=== PATIENT | female | born 1950 | race African-American/Black ===

== ENCOUNTER 2018-12-28 22:04 | Inpatient (IN) ==
[2018-12-28] MEDS ORDERED: ALBUTEROL/IPRATROPIUM 3 ML NEB RESP TX STA (22:48)
[2018-12-28 23:11] LABS: Alanine Aminotransferase 32 U/L (13-56); Albumin 2.5 G/DL (3.4-5.0); Alkaline Phosphatase 77 U/L (45-117); Aspartate Amino Transferase 28 U/L (0-37); Bilirubin,Total < 0.39 MG/DL (0.2-1.0); Blood Urea Nitrogen 53 MG/DL (7-18); Calcium 7.8 MG/DL (8.5-10.1); Glucose 113 MG/DL (74-106); Total Protein 6.4 G/DL (6.4-8.3)
[2018-12-28 23:22] LABS: Red Blood Count 2.14 MC/CUMM (3.8-5.5); White Blood Count 6.5 T/CUMM (4-12)
[2018-12-28 23:23] LABS: Hematocrit 18.4 VOL% (35.7-47.0); Mean Corpuscular HGB Conc 30.4 GM/DL (32-36); Platelet Count 318 T/CUMM (130-400); Red Cell Distribution Width 17.4 % (9.3-17.3)
[2018-12-28 23:24] LABS: Basophils % 0.5 % (0.0-0.8); Eosinophils % 2.3 % (0.00-10.9); Immature Granulocytes % 0.3 %; Lymphocytes % 19.2 % (21.3-54.2); Monocytes % 4.6 % (1.7-12.7); Neutrophils % 73.1 % (38.7-73.9)
[2018-12-28 23:25] LABS: Eosinophils # 0.2 10*3/uL (0.0-0.87); Immature Granulocytes Absolute 0.02 #; Lymphocytes # 1.2 10*3/uL (1.4-4.0)
[2018-12-28 23:28] LABS: Hemoglobin 5.6 GM/DL (12.0-16.0)
[2018-12-28] MEDS ORDERED: hydrALAZINE 20 MG/1 ML VIAL IV STA (23:31)
[2018-12-28] MEDS ORDERED: SODIUM CHLORIDE 0.9% 1,000 ML IV PRN (23:34)
[2018-12-29] MEDS ORDERED: hydrALAZINE 20 MG/1 ML VIAL IV STA (00:10)
[2018-12-29] MEDS ORDERED: FUROSEMIDE 40 MG/4 ML VIAL IV STA (00:11)
[2018-12-29] MEDS ORDERED: FUROSEMIDE 100 MG/10 ML VIAL ONE (00:12)
[2018-12-29] MEDS: hydrALAZINE 20 MG/1 ML VIAL IV PRN ×2 (01:58→06:31)
[2018-12-29] MEDS ORDERED: ALBUTEROL 2.5 MG/3 ML NEB RESP TX PRN (02:14)
[2018-12-29] MEDS ORDERED: ONDANSETRON 4 MG/2 ML VIAL IV PRN (02:14)
[2018-12-29 02:43] LABS: Apearance,Urine CLEAR (Clear); Bacteria,Urine Occasional /HPF (Few); Bilirubin,Urine Negative (Negative); Blood, Urine Negative (Negative); Glucose,Urine (UA) 50 mg/dL (Negative); Hyaline Casts,Urine 1 /LPF (0-3); Ketones,Urine Negative (Negative); Nitrite,Urine Negative (Negative); Protein,Urine 100 MG/DL; RBC,Urine <1 /HPF (0-4); Squamous Epithelial Cell,Urine Occasional /HPF (0-10); Urine Color Straw (Yellow); Urine Urobilinogen < 2.0 EU/DL (0.2-1.0); WBC,Urine 1 /HPF (0-6)
[2018-12-29] MEDS: cloNIDine 0.3 MG/24 HR PATCH TRANSDERM SCH ×2 (03:22→08:50)
[2018-12-29] MEDS: PANTOPRAZOLE 40 MG VIAL IV SCH (03:27)
[2018-12-29 05:19] LABS: Calcium 8.4 MG/DL (8.5-10.1); Osmolality,Calculated 297.1 MOS/KG (273-304)
[2018-12-29] MEDS: MORPHINE 4 MG/1 ML VIAL IV PRN (07:14)
[2018-12-29] MEDS: ALBUTEROL/IPRATROPIUM 3 ML NEB RESP TX SCH ×3 (07:55→19:25)
[2018-12-29] MEDS ORDERED: FUROSEMIDE 100 MG/10 ML VIAL IV SCH (08:00)
[2018-12-29] MEDS ORDERED: INSULIN REGULAR 100 UNIT/ML IV ONE (08:00)
[2018-12-29] MEDS ORDERED: SODIUM POLYSTYRENE SULFATE 15 GM/60 ML BOTTLE PO ONE ×2 (08:00→15:00)
[2018-12-29] MEDS ORDERED: DEXTROSE 10% 25 GM/250 ML BAG IV ONE (08:00)
[2018-12-29 08:16] LABS: Basophils # 0.1 10*3/uL (0.0-0.2); Basophils % 0.6 % (0.0-0.8); Eosinophils % 0.5 % (0.00-10.9); Hematocrit 22.6 VOL% (35.7-47.0); Immature Granulocytes % 0.9 %; Immature Granulocytes Absolute 0.08 #; Lymphocytes # 1.1 10*3/uL (1.4-4.0); Lymphocytes % 13.1 % (21.3-54.2); Mean Corpuscular HGB Conc 31.9 GM/DL (32-36); Mean Corpuscular Volume 84.6 FL (87-102); Mean Platelet Volume 8.9 FL (9.6-12.0); Monocytes % 5.1 % (1.7-12.7); Neutrophils % 79.8 % (38.7-73.9); Platelet Count 279 T/CUMM (130-400); Red Cell Distribution Width 16.1 % (9.3-17.3)
[2018-12-29 08:20] LABS: Hemoglobin 7.2 GM/DL (12.0-16.0); Red Blood Count 2.67 MC/CUMM (3.8-5.5); White Blood Count 8.7 T/CUMM (4-12)
[2018-12-29] MEDS: OMEGA 3 ACID ETHYL ESTERS 1 GM CAPSULE PO SCH (08:40)
[2018-12-29] MEDS: SIMVASTATIN 20 MG TABLET PO SCH (08:41)
[2018-12-29] MEDS: methylPREDNISolone SOD SUC 40 MG/1 ML VIAL IV SCH ×3 (08:41→21:05)
[2018-12-29] MEDS: IRON (CARBONYL)/VIT C/B12/FA TABLET PO SCH (08:58)
[2018-12-29] MEDS: LETROZOLE 2.5 MG TABLET PO SCH (08:58)
[2018-12-29] MEDS: CARVEDILOL 6.25 MG TABLET PO SCH ×2 (08:58→21:05)
[2018-12-29] MEDS ORDERED: cloNIDine 0.3 MG/24 HR PATCH TRANSDERM SCH (09:00)
[2018-12-29] MEDS ORDERED: hydrALAZINE 20 MG/1 ML VIAL IV PRN (11:38)
[2018-12-29] MEDS: metOLazone 5 MG TABLET PO SCH (11:56)
[2018-12-29] MEDS: FUROSEMIDE INJ 200 MG in SODIUM CHLORIDE 0.9% 80 ML IV SCH ×2 (12:05→23:42)
[2018-12-29] MEDS ORDERED: CALCIUM GLUCONATE 2,000 MG in SODIUM CHLORIDE 0.9% 100 ML IV ONE (12:30)
[2018-12-29 13:39] LABS: Calcium 9.3 MG/DL (8.5-10.1); Osmolality,Calculated 293.5 MOS/KG (273-304)
[2018-12-30] MEDS: ALBUTEROL/IPRATROPIUM 3 ML NEB RESP TX SCH ×4 (01:05→19:15)
[2018-12-30] MEDS: FUROSEMIDE INJ 200 MG in SODIUM CHLORIDE 0.9% 80 ML IV SCH ×2 (01:06→14:45)
[2018-12-30] MEDS: methylPREDNISolone SOD SUC 40 MG/1 ML VIAL IV SCH ×4 (03:28→20:04)
[2018-12-30] MEDS: PANTOPRAZOLE 40 MG VIAL IV SCH (03:29)
[2018-12-30 05:23] LABS: Hematocrit 19.8 VOL% (35.7-47.0); Immature Granulocytes % 0.8 %; Immature Granulocytes Absolute 0.03 #; Lymphocytes # 0.4 10*3/uL (1.4-4.0); Lymphocytes % 9.3 % (21.3-54.2); Mean Corpuscular HGB Conc 32.3 GM/DL (32-36); Mean Corpuscular Volume 83.5 FL (87-102); Mean Platelet Volume 9.3 FL (9.6-12.0); Monocytes % 1.6 % (1.7-12.7); Neutrophils % 88.3 % (38.7-73.9); Platelet Count 256 T/CUMM (130-400); Red Blood Count 2.37 MC/CUMM (3.8-5.5); Red Cell Distribution Width 16.6 % (9.3-17.3); White Blood Count 3.8 T/CUMM (4-12)
[2018-12-30 05:39] LABS: Calcium 8.5 MG/DL (8.5-10.1); Osmolality,Calculated 303.8 MOS/KG (273-304)
[2018-12-30 05:50] LABS: Albumin 2.2 G/DL (3.4-5.0); Calcium 8.1 MG/DL (8.5-10.1); Osmolality,Calculated 303.8 MOS/KG (273-304)
[2018-12-30 06:13] LABS: Hemoglobin 6.4 GM/DL (12.0-16.0)
[2018-12-30] MEDS ORDERED: SODIUM CHLORIDE 0.9% 1,000 ML IV PRN ×2 (08:33→08:37)
[2018-12-30] MEDS: CARVEDILOL 6.25 MG TABLET PO SCH ×2 (09:08→21:21)
[2018-12-30] MEDS: SIMVASTATIN 20 MG TABLET PO SCH (09:08)
[2018-12-30] MEDS: LETROZOLE 2.5 MG TABLET PO SCH (09:08)
[2018-12-30] MEDS: metOLazone 5 MG TABLET PO SCH (09:08)
[2018-12-30] MEDS: OMEGA 3 ACID ETHYL ESTERS 1 GM CAPSULE PO SCH (09:09)
[2018-12-30] MEDS: IRON (CARBONYL)/VIT C/B12/FA TABLET PO SCH (09:09)
[2018-12-30] MEDS ORDERED: ceFAZolin 1,000 MG in SYRINGE 1 EACH IV ONE (11:28)
[2018-12-30] MEDS ORDERED: HEPARIN 5,000 UNIT/1 ML VIAL ONE (13:20)
[2018-12-30] MEDS ORDERED: BUPIVACAINE MPF 0.25% /EPI 30 ML VIAL ONE (13:20)
[2018-12-30] MEDS ORDERED: PROPOFOL 200 MG/20 ML VIAL IV ONE (14:47)
[2018-12-30] MEDS ORDERED: SODIUM CHLORIDE 0.9% 250 ML IV ONE (14:48)
[2018-12-30 15:59] LABS: Hepatitis B Core IgM Quant 0.21 Index; Hepatitis B Surface Ag Quant < 0.10 Index; Hepatitis B Surface Ag Result Negative (Negative); Hepatitis C Virus Ab Quant < 0.02 Index; Hepatitis C Virus Ab Result Negative (Negative)
[2018-12-30] MEDS ORDERED: HEPARIN 10,000 UNIT/10 ML VIAL IV PRN (18:05)
[2018-12-31] MEDS: ALBUTEROL/IPRATROPIUM 3 ML NEB RESP TX SCH ×4 (01:56→19:53)
[2018-12-31] MEDS: methylPREDNISolone SOD SUC 40 MG/1 ML VIAL IV SCH ×4 (02:49→22:02)
[2018-12-31] MEDS: PANTOPRAZOLE 40 MG VIAL IV SCH (02:51)
[2018-12-31 06:02] LABS: Hematocrit 24.2 VOL% (35.7-47.0); Hemoglobin 7.7 GM/DL (12.0-16.0); Immature Granulocytes % 0.5 %; Immature Granulocytes Absolute 0.03 #; Lymphocytes # 0.3 10*3/uL (1.4-4.0); Lymphocytes % 5.5 % (21.3-54.2); Mean Corpuscular HGB Conc 31.8 GM/DL (32-36); Mean Corpuscular Volume 83.2 FL (87-102); Mean Platelet Volume 9.2 FL (9.6-12.0); Monocytes % 3.4 % (1.7-12.7); Neutrophils % 90.6 % (38.7-73.9); Platelet Count 218 T/CUMM (130-400); Red Blood Count 2.91 MC/CUMM (3.8-5.5); Red Cell Distribution Width 16.1 % (9.3-17.3); White Blood Count 5.6 T/CUMM (4-12)
[2018-12-31 06:32] LABS: Albumin 2.2 G/DL (3.4-5.0); Calcium 7.7 MG/DL (8.5-10.1); Osmolality,Calculated 289.3 MOS/KG (273-304)
[2018-12-31 06:45] LABS: Band Neutrophils 4 % (0-10); Lymphocytes 4 % (20-55); Platelet Estimate Normal; Segmented Neutrophils 86 % (50-85); Total Cells Counted 100
[2018-12-31 06:46] LABS: Hypochromasia 2+
[2018-12-31 07:15] LABS: Calcium 7.4 MG/DL (8.5-10.1); Osmolality,Calculated 289.3 MOS/KG (273-304)
[2018-12-31] MEDS ORDERED: BISACODYL 5 MG TABLET PO ONE (08:30)
[2018-12-31] MEDS: POLYETHYLENE GLYCOL POWDER 17 GM PACK PO SCH (08:39)
[2018-12-31] MEDS: IRON (CARBONYL)/VIT C/B12/FA TABLET PO SCH (08:41)
[2018-12-31] MEDS: CARVEDILOL 6.25 MG TABLET PO SCH ×2 (08:41→22:01)
[2018-12-31] MEDS: SIMVASTATIN 20 MG TABLET PO SCH (08:41)
[2018-12-31] MEDS: LETROZOLE 2.5 MG TABLET PO SCH (08:41)
[2018-12-31] MEDS: metOLazone 5 MG TABLET PO SCH (08:41)
[2018-12-31] MEDS: OMEGA 3 ACID ETHYL ESTERS 1 GM CAPSULE PO SCH (09:35)
[2018-12-31] MEDS ORDERED: SODIUM CHLORIDE 0.9% 1,000 ML IV PRN (10:16)
[2018-12-31] MEDS: MORPHINE 4 MG/1 ML VIAL IV PRN (22:01)
[2019-01-01] MEDS: ALBUTEROL/IPRATROPIUM 3 ML NEB RESP TX SCH ×4 (00:27→19:15)
[2019-01-01] MEDS: methylPREDNISolone SOD SUC 40 MG/1 ML VIAL IV SCH ×4 (02:59→22:55)
[2019-01-01] MEDS: PANTOPRAZOLE 40 MG VIAL IV SCH (03:10)
[2019-01-01 06:18] LABS: Hematocrit 32.2 VOL% (35.7-47.0); Hemoglobin 10.5 GM/DL (12.0-16.0); Immature Granulocytes % 0.3 %; Immature Granulocytes Absolute 0.02 #; Lymphocytes # 0.4 10*3/uL (1.4-4.0); Lymphocytes % 5.3 % (21.3-54.2); Mean Corpuscular HGB Conc 32.6 GM/DL (32-36); Mean Corpuscular Volume 84.7 FL (87-102); Mean Platelet Volume 10.2 FL (9.6-12.0); Neutrophils % 91.4 % (38.7-73.9); Platelet Count 238 T/CUMM (130-400); Red Cell Distribution Width 16.1 % (9.3-17.3); White Blood Count 6.8 T/CUMM (4-12)
[2019-01-01 06:41] LABS: Hypochromasia 1+; Lymphocytes 5 % (20-55); Platelet Estimate Adequate; Segmented Neutrophils 91 % (50-85); Total Cells Counted 100
[2019-01-01 06:58] LABS: Albumin 2.3 G/DL (3.4-5.0); Calcium 7.8 MG/DL (8.5-10.1); Osmolality,Calculated 292.1 MOS/KG (273-304)
[2019-01-01] MEDS ORDERED: HYDROCORTISONE 2.5% RECTAL CREAM 30 GM TUBE TOP PRN (09:00)
[2019-01-01] MEDS: IRON (CARBONYL)/VIT C/B12/FA TABLET PO SCH (09:12)
[2019-01-01] MEDS: OMEGA 3 ACID ETHYL ESTERS 1 GM CAPSULE PO SCH (09:12)
[2019-01-01] MEDS: POLYETHYLENE GLYCOL POWDER 17 GM PACK PO SCH (09:12)
[2019-01-01] MEDS: metOLazone 5 MG TABLET PO SCH (09:12)
[2019-01-01] MEDS: LETROZOLE 2.5 MG TABLET PO SCH (09:12)
[2019-01-01] MEDS: CARVEDILOL 6.25 MG TABLET PO SCH ×2 (09:12→22:59)
[2019-01-01] MEDS ORDERED: PROPOFOL 200 MG/20 ML VIAL IV ONE (10:00)
[2019-01-01] MEDS ORDERED: LIDOCAINE 100 MG/5 ML SYRINGE ONE (10:00)
[2019-01-01] MEDS: SODIUM CHLORIDE 0.9% 500 ML IV SCH (13:33)
[2019-01-01] MEDS: SIMVASTATIN 20 MG TABLET PO SCH (20:25)
[2019-01-02] MEDS: ALBUTEROL/IPRATROPIUM 3 ML NEB RESP TX SCH ×4 (00:15→19:07)
[2019-01-02] MEDS: PANTOPRAZOLE 40 MG VIAL IV SCH (03:30)
[2019-01-02] MEDS: ACETAMINOPHEN 325 MG TABLET PO PRN ×2 (06:19→16:03)
[2019-01-02] MEDS: methylPREDNISolone SOD SUC 40 MG/1 ML VIAL IV SCH ×3 (06:20→23:51)
[2019-01-02 06:39] LABS: Hematocrit 33.9 VOL% (35.7-47.0); Hemoglobin 10.9 GM/DL (12.0-16.0); Immature Granulocytes % 0.4 %; Immature Granulocytes Absolute 0.03 #; Lymphocytes # 0.4 10*3/uL (1.4-4.0); Lymphocytes % 5.5 % (21.3-54.2); Mean Corpuscular HGB Conc 32.2 GM/DL (32-36); Mean Platelet Volume 10.1 FL (9.6-12.0); Monocytes % 3.8 % (1.7-12.7); Neutrophils % 90.3 % (38.7-73.9); Platelet Count 235 T/CUMM (130-400); Red Blood Count 3.94 MC/CUMM (3.8-5.5); White Blood Count 7.3 T/CUMM (4-12)
[2019-01-02 06:48] LABS: Albumin 2.2 G/DL (3.4-5.0); Calcium 7.7 MG/DL (8.5-10.1); Osmolality,Calculated 297.3 MOS/KG (273-304)
[2019-01-02] MEDS: SODIUM CHLORIDE 0.9% 500 ML IV SCH (07:20)
[2019-01-02] MEDS: OMEGA 3 ACID ETHYL ESTERS 1 GM CAPSULE PO SCH (08:35)
[2019-01-02] MEDS: POLYETHYLENE GLYCOL POWDER 17 GM PACK PO SCH (08:35)
[2019-01-02] MEDS: CALCIUM ACETATE 667 MG CAPSULE PO SCH ×3 (08:35→16:03)
[2019-01-02] MEDS: LETROZOLE 2.5 MG TABLET PO SCH (08:35)
[2019-01-02] MEDS: CARVEDILOL 6.25 MG TABLET PO SCH ×2 (08:35→21:57)
[2019-01-02] MEDS: IRON (CARBONYL)/VIT C/B12/FA TABLET PO SCH (08:35)
[2019-01-02] MEDS: SIMVASTATIN 20 MG TABLET PO SCH (21:56)
[2019-01-03] MEDS: ALBUTEROL/IPRATROPIUM 3 ML NEB RESP TX SCH ×4 (00:46→20:30)
[2019-01-03] MEDS: PANTOPRAZOLE 40 MG VIAL IV SCH (04:15)
[2019-01-03 05:27] LABS: Basophils % 0.1 % (0.0-0.8); Hematocrit 35.4 VOL% (35.7-47.0); Immature Granulocytes % 0.6 %; Immature Granulocytes Absolute 0.05 #; Lymphocytes # 0.5 10*3/uL (1.4-4.0); Lymphocytes % 5.6 % (21.3-54.2); Mean Corpuscular HGB Conc 31.1 GM/DL (32-36); Mean Platelet Volume 10.1 FL (9.6-12.0); Monocytes % 3.7 % (1.7-12.7); Platelet Count 235 T/CUMM (130-400); Red Blood Count 4.07 MC/CUMM (3.8-5.5); Red Cell Distribution Width 15.6 % (9.3-17.3); White Blood Count 8.5 T/CUMM (4-12)
[2019-01-03] MEDS: SODIUM CHLORIDE 0.9% 500 ML IV SCH (07:43)
[2019-01-03] MEDS: CARVEDILOL 6.25 MG TABLET PO SCH ×2 (09:04→21:09)
[2019-01-03] MEDS: OMEGA 3 ACID ETHYL ESTERS 1 GM CAPSULE PO SCH (09:04)
[2019-01-03] MEDS: IRON (CARBONYL)/VIT C/B12/FA TABLET PO SCH (09:05)
[2019-01-03] MEDS: CALCIUM ACETATE 667 MG CAPSULE PO SCH ×3 (09:05→17:01)
[2019-01-03] MEDS: LETROZOLE 2.5 MG TABLET PO SCH (09:05)
[2019-01-03] MEDS: POLYETHYLENE GLYCOL POWDER 17 GM PACK PO SCH (09:05)
[2019-01-03] MEDS ORDERED: BISACODYL 5 MG TABLET PO ONE (12:00)
[2019-01-03] MEDS: methylPREDNISolone SOD SUC 40 MG/1 ML VIAL IV SCH (13:35)
[2019-01-03] MEDS ORDERED: POLYETHYLENE GLYCOL POWDER 255 GM BOTTLE PO ONE (15:47)
[2019-01-03] MEDS: SIMVASTATIN 20 MG TABLET PO SCH (21:09)
[2019-01-04] MEDS: ALBUTEROL/IPRATROPIUM 3 ML NEB RESP TX SCH ×4 (01:55→19:44)
[2019-01-04] MEDS: PANTOPRAZOLE 40 MG VIAL IV SCH (02:41)
[2019-01-04 06:08] LABS: Calcium 7.8 MG/DL (8.5-10.1); Osmolality,Calculated 283.8 MOS/KG (273-304)
[2019-01-04] MEDS: CALCIUM ACETATE 667 MG CAPSULE PO SCH ×3 (08:24→16:37)
[2019-01-04] MEDS ORDERED: POLYETHYLENE GLYCOL POWDER 255 GM BOTTLE PO ONE (08:42)
[2019-01-04] MEDS: POLYETHYLENE GLYCOL POWDER 17 GM PACK PO SCH (08:49)
[2019-01-04] MEDS ORDERED: methylPREDNISolone SOD SUC 40 MG/1 ML VIAL IV SCH (09:00)
[2019-01-04] MEDS: SODIUM CHLORIDE 0.9% 500 ML IV SCH (09:01)
[2019-01-04] MEDS: LETROZOLE 2.5 MG TABLET PO SCH (09:02)
[2019-01-04] MEDS: CARVEDILOL 6.25 MG TABLET PO SCH ×2 (09:02→21:10)
[2019-01-04] MEDS: IRON (CARBONYL)/VIT C/B12/FA TABLET PO SCH (09:02)
[2019-01-04] MEDS: OMEGA 3 ACID ETHYL ESTERS 1 GM CAPSULE PO SCH (09:03)
[2019-01-04] MEDS: SIMVASTATIN 20 MG TABLET PO SCH (21:10)
[2019-01-05] MEDS: ALBUTEROL/IPRATROPIUM 3 ML NEB RESP TX SCH ×4 (00:19→19:11)
[2019-01-05] MEDS: PANTOPRAZOLE 40 MG VIAL IV SCH ×2 (03:27→16:00)
[2019-01-05 04:54] LABS: INR 1.1; PT Patient Result 11.5 SECS
[2019-01-05] MEDS ORDERED: LIDOCAINE 1% 5 ML VIAL ONE (09:00)
[2019-01-05] MEDS ORDERED: PROPOFOL 200 MG/20 ML VIAL IV ONE (09:00)
[2019-01-05] MEDS: CALCIUM ACETATE 667 MG CAPSULE PO SCH ×3 (09:00→16:02)
[2019-01-05] MEDS: LETROZOLE 2.5 MG TABLET PO SCH ×2 (11:30→16:03)
[2019-01-05] MEDS: predniSONE 20 MG TABLET PO SCH ×2 (11:30→16:02)
[2019-01-05] MEDS: POLYETHYLENE GLYCOL POWDER 17 GM PACK PO SCH ×2 (11:30→16:03)
[2019-01-05] MEDS: IRON (CARBONYL)/VIT C/B12/FA TABLET PO SCH (11:30)
[2019-01-05] MEDS: OMEGA 3 ACID ETHYL ESTERS 1 GM CAPSULE PO SCH ×2 (11:30→16:02)
[2019-01-05] MEDS: CARVEDILOL 6.25 MG TABLET PO SCH ×2 (11:30→16:03)
[2019-01-05] MEDS: PANTOPRAZOLE 40 MG TABLET PO SCH ×2 (11:31→16:03)
[2019-01-05] MEDS: SODIUM CHLORIDE 0.9% 500 ML IV SCH (12:00)
[2019-01-05] MEDS: cloNIDine 0.3 MG/24 HR PATCH TRANSDERM SCH (16:01)
[2019-01-05] MEDS: SIMVASTATIN 20 MG TABLET PO SCH (21:20)
[2019-01-05] MEDS: CARVEDILOL 3.125 MG TABLET PO SCH (21:20)
[2019-01-06] MEDS: ALBUTEROL/IPRATROPIUM 3 ML NEB RESP TX SCH ×4 (00:42→19:30)
[2019-01-06 07:06] LABS: Calcium 7.8 MG/DL (8.5-10.1); Osmolality,Calculated 277.1 MOS/KG (273-304)
[2019-01-06] MEDS: SODIUM CHLORIDE 0.9% 500 ML IV SCH (09:35)
[2019-01-06] MEDS: LETROZOLE 2.5 MG TABLET PO SCH (09:36)
[2019-01-06] MEDS: PANTOPRAZOLE 40 MG TABLET PO SCH (09:36)
[2019-01-06] MEDS: predniSONE 20 MG TABLET PO SCH (09:36)
[2019-01-06] MEDS: CARVEDILOL 3.125 MG TABLET PO SCH ×2 (09:36→21:10)
[2019-01-06] MEDS: IRON (CARBONYL)/VIT C/B12/FA TABLET PO SCH (09:36)
[2019-01-06] MEDS: POLYETHYLENE GLYCOL POWDER 17 GM PACK PO SCH (09:39)
[2019-01-06] MEDS: OMEGA 3 ACID ETHYL ESTERS 1 GM CAPSULE PO SCH (09:41)
[2019-01-06] MEDS: SIMVASTATIN 20 MG TABLET PO SCH (21:10)
[2019-01-07] MEDS: ALBUTEROL/IPRATROPIUM 3 ML NEB RESP TX SCH ×3 (00:51→13:33)
[2019-01-07] MEDS: ACETAMINOPHEN 325 MG TABLET PO PRN (04:41)
[2019-01-07 06:28] LABS: Calcium 7.6 MG/DL (8.5-10.1)
[2019-01-07] MEDS: SODIUM CHLORIDE 0.9% 500 ML IV SCH (08:49)
[2019-01-07] MEDS: CARVEDILOL 3.125 MG TABLET PO SCH (10:47)
[2019-01-07] MEDS: IRON (CARBONYL)/VIT C/B12/FA TABLET PO SCH (10:47)
[2019-01-07] MEDS: OMEGA 3 ACID ETHYL ESTERS 1 GM CAPSULE PO SCH (10:47)
[2019-01-07] MEDS: predniSONE 20 MG TABLET PO SCH (10:47)
[2019-01-07] MEDS: LETROZOLE 2.5 MG TABLET PO SCH (10:47)
[2019-01-07] MEDS: POLYETHYLENE GLYCOL POWDER 17 GM PACK PO SCH (10:48)
[2019-01-07] MEDS: PANTOPRAZOLE 40 MG TABLET PO SCH (10:48)
[2019-01-07 12:20] VITALS: BP 128/71
== END 2019-01-07 17:33 | disposition home or self-care (01) | DRG 673 ==
LOC: N.ED 22:04 → SUATTDRO 12-29 00:09 → N.EDINP 12-29 00:09 → N.ICU 12-29 00:33 → N.5E 12-31 19:20
PROVIDERS: ADMIT Internal Medicine; ATTEND Family Medicine

== ENCOUNTER 2019-03-13 10:15 | Inpatient (IN) ==
[2019-03-13] MEDS ORDERED: HEPARIN 10,000 UNIT/10 ML VIAL IV SCH (10:30)
[2019-03-13 11:00] LABS: Basophils % 0.8 % (0.0-0.8); Eosinophils # 0.2 10*3/uL (0.0-0.87); Eosinophils % 4.2 % (0.00-10.9); Hematocrit 23.6 VOL% (35.7-47.0); Hemoglobin 7.5 GM/DL (12.0-16.0); Immature Granulocytes % 0.3 %; Immature Granulocytes Absolute 0.01 #; Lymphocytes # 0.8 10*3/uL (1.4-4.0); Lymphocytes % 20.1 % (21.3-54.2); Mean Corpuscular HGB Conc 31.8 GM/DL (32-36); Mean Corpuscular Volume 94.8 FL (87-102); Monocytes % 7.3 % (1.7-12.7); Neutrophils % 67.3 % (38.7-73.9); Platelet Count 249 T/CUMM (130-400); Red Blood Count 2.49 MC/CUMM (3.8-5.5); Red Cell Distribution Width 15.2 % (9.3-17.3); White Blood Count 3.8 T/CUMM (4-12)
[2019-03-13 11:25] LABS: Alanine Aminotransferase 31 U/L (13-56); Albumin 2.7 G/DL (3.4-5.0); Alkaline Phosphatase 95 U/L (45-117); Aspartate Amino Transferase 23 U/L (0-37); Bilirubin,Total < 0.39 MG/DL (0.2-1.0); Blood Urea Nitrogen 27 MG/DL (7-18); Calcium 8.2 MG/DL (8.5-10.1); Estimated Glom Filtration Rate 18 ML/MIN; Glucose 86 MG/DL (74-106); Osmolality,Calculated 282.4 MOS/KG (273-304); Total Protein 6.4 G/DL (6.4-8.3)
[2019-03-13] MEDS: SODIUM CHLORIDE 0.9% 1,000 ML IV SCH (12:13)
[2019-03-13] MEDS: carvediloL 6.25 MG TABLET PO SCH (16:55)
[2019-03-14] MEDS ORDERED: SODIUM CHLORIDE 0.9% 1,000 ML IV PRN (11:04)
[2019-03-14] MEDS: IRON (CARBONYL)/VIT C/B12/FA TABLET PO SCH (12:46)
[2019-03-14] MEDS: LETROZOLE 2.5 MG TABLET PO SCH (12:46)
[2019-03-14] MEDS: carvediloL 6.25 MG TABLET PO SCH ×2 (12:47→16:03)
[2019-03-14] MEDS: CHLORHEXIDINE 0.12% ORAL RINSE 60 ML BOTTLE SWISH/SPIT SCH ×2 (12:49→21:47)
[2019-03-14] MEDS: SODIUM CHLORIDE 0.9% 1,000 ML IV SCH (12:50)
[2019-03-14] MEDS: CHLORHEXIDINE 4% SOLN 118 ML BOTTLE TOP SCH ×3 (12:58→21:19)
[2019-03-15] MEDS ORDERED: VANCOMYCIN 1,000 MG VIAL ONE (04:21)
[2019-03-15] MEDS ORDERED: TISSUE ADHESIVE 1 EACH APPLICATOR TOP ONE (04:21)
[2019-03-15] MEDS ORDERED: PAPAVERINE 60 MG/2 ML VIAL ONE (04:21)
[2019-03-15] MEDS: CHLORHEXIDINE 4% SOLN 118 ML BOTTLE TOP SCH ×2 (04:45→08:37)
[2019-03-15] MEDS ORDERED: PHENYLEPHRINE DRIP 20 MG/250 ML PREMIX IV ONE (05:41)
[2019-03-15] MEDS ORDERED: CALCIUM CHLORIDE 1,000 MG/10 ML VIAL IV ONE (05:41)
[2019-03-15] MEDS ORDERED: HEPARIN/NACL 0.9% 2 UNITS/ML 500 ML IV ONE (05:41)
[2019-03-15] MEDS ORDERED: AMINOCAPROIC ACID 5,000 MG/20 ML VIAL ONE (05:42)
[2019-03-15] MEDS ORDERED: VECURONIUM 10 MG VIAL IV ONE (05:42)
[2019-03-15] MEDS ORDERED: MIDAZOLAM 10 MG/2 ML VIAL ONE (05:42)
[2019-03-15] MEDS ORDERED: ETOMIDATE 40 MG/20 ML VIAL IV ONE (05:42)
[2019-03-15] MEDS ORDERED: ePHEDrine 50 MG/ML AMP ONE (05:42)
[2019-03-15] MEDS ORDERED: NITROGLYCERIN DRIP 50 MG/250 ML BOTTLE IV ONE (05:42)
[2019-03-15] MEDS ORDERED: LACTATED RINGERS 1,000 ML IV ONE (05:43)
[2019-03-15] MEDS ORDERED: SODIUM CHLORIDE 0.9% 250 ML IV ONE (05:43)
[2019-03-15] MEDS ORDERED: SODIUM CHLORIDE 0.9% 1,000 ML IV ONE (05:43)
[2019-03-15] MEDS: carvediloL 6.25 MG TABLET PO SCH ×2 (06:01→08:37)
[2019-03-15] MEDS ORDERED: CEFUROXIME INJ 1,500 MG in SODIUM CHLORIDE 0.9% 100 ML IV ONE (06:30)
[2019-03-15 08:06] LABS: ABG Base Excess -1.2 MMOL/L (-2.5-2.5); ABG HCO3 23.4 MMOL/L (20-26); ABG PCO2 38.9 MM HG (35-48); ABG TCO2 21.3 MMOL/L (23-27); Glucose Heart Surgery 102 MG/DL (74-106); Hematocrit Heart Surgery 31.9 PERCENT (37-47); Hemoglobin Heart Surgery 10.3 G/DL (12.0-16.0); Ionized Calcium Arterial 1.45 MMOL/L (1.21-1.46); PCO2 Patient Temp Arterial 38.9 MMHG; Patient Temperature 37 CELCIUS; Sodium Heart/CVR 134 MMOL/L (135-145)
[2019-03-15 08:11] LABS: Amorphous Crystals,Urine Few /HPF (Few); Apearance,Urine CLEAR (Clear); Bilirubin,Urine Negative (Negative); Blood, Urine Negative (Negative); Glucose,Urine (UA) Negative (Negative); Ketones,Urine Negative (Negative); Mucus,Urine Occasional /LPF (Occasional); Nitrite,Urine Negative (Negative); Protein,Urine >=500 MG/DL; Squamous Epithelial Cell,Urine Occasional /HPF (0-10); Urine Color Straw (Yellow); Urine Specific Gravity 1.005 (1.001-1.035); Urine Urobilinogen < 2.0 EU/DL (0.2-1.0); WBC,Urine <1 /HPF (0-6)
[2019-03-15] MEDS: IRON (CARBONYL)/VIT C/B12/FA TABLET PO SCH (08:37)
[2019-03-15] MEDS: LETROZOLE 2.5 MG TABLET PO SCH (08:37)
[2019-03-15] MEDS ORDERED: VANCOMYCIN 500 MG VIAL ONE (08:42)
[2019-03-15 09:11] LABS: Hematocrit Heart Surgery 20.6 PERCENT (37-47); Hemoglobin Heart Surgery 6.6 G/DL (12.0-16.0); PCO2 Patient Temp Venous 37.4 MM HG; PH Patient Temp Venous 7.405; Potassium Heart/CVR 5.2 MMOL/L (3.5-5.1); VBG HCO3 23.4 MEQ/L (24-28); VBG Oxygen Saturation 79.7 %; VBG PCO2 39.3 MMHG (41-51); VBG PH 7.39; VBG PO2 42.8 MMHG (17-40)
[2019-03-15 09:45] LABS: Hemoglobin Heart Surgery 6.8 G/DL (12.0-16.0); PCO2 Patient Temp Venous 31.5 MM HG; PH Patient Temp Venous 7.399; PO2 Patient Temp Venous 49.6 MM HG; Potassium Heart/CVR 4.2 MMOL/L (3.5-5.1); VBG Base Excess -5.3 MEQ/L (0-4); VBG HCO3 19.2 MEQ/L (24-28); VBG Oxygen Saturation 85.6 %; VBG PCO2 32.9 MMHG (41-51); VBG PH 7.384; VBG PO2 53.2 MMHG (17-40)
[2019-03-15] MEDS ORDERED: diphenhydrAMINE 50 MG/1 ML VIAL ONE (10:00)
[2019-03-15] MEDS ORDERED: FAMOTIDINE 20 MG/2 ML VIAL IV ONE (10:01)
[2019-03-15 10:14] LABS: Hematocrit Heart Surgery 25.9 PERCENT (37-47); Hemoglobin Heart Surgery 8.3 G/DL (12.0-16.0); PCO2 Patient Temp Venous 37.9 MM HG; PH Patient Temp Venous 7.366; PO2 Patient Temp Venous 34.1 MM HG; Potassium Heart/CVR 4.7 MMOL/L (3.5-5.1); VBG Base Excess -3.2 MEQ/L (0-4); VBG HCO3 21.4 MEQ/L (24-28); VBG Oxygen Saturation 72.1 %; VBG PCO2 39.8 MMHG (41-51); VBG PH 7.351; VBG PO2 36.6 MMHG (17-40)
[2019-03-15] MEDS ORDERED: THROMBIN TOPICAL (RECOMBINANT) 5,000 UNIT VIAL TOP ONE (10:28)
[2019-03-15] MEDS ORDERED: MANNITOL 100 GM/500 ML BAG IV ONE (10:37)
[2019-03-15] MEDS ORDERED: PROTAMINE SULFATE 250 MG/25 ML VIAL IV ONE (10:37)
[2019-03-15] MEDS ORDERED: MAGNESIUM SULFATE 5 GM/10 ML VIAL IV ONE (10:37)
[2019-03-15] MEDS ORDERED: SODIUM BICARBONATE 50 MEQ/50 ML VIAL IV ONE (10:37)
[2019-03-15] MEDS ORDERED: ALBUMIN 25% 25 GM/100 ML VIAL IV ONE (10:37)
[2019-03-15] MEDS ORDERED: DEXTROSE 5% KCL 20 MEQ 20 MEQ/1,000 ML BAG IV ONE (10:37)
[2019-03-15] MEDS ORDERED: LIDOCAINE 2% 5 ML VIAL ONE (10:37)
[2019-03-15] MEDS ORDERED: FUROSEMIDE 20 MG/2 ML VIAL ONE (10:38)
[2019-03-15] MEDS ORDERED: methylPREDNISolone SOD SUC 1,000 MG/8 ML VIAL ONE (10:38)
[2019-03-15] MEDS ORDERED: PROTAMINE SULFATE 50 MG/5 ML VIAL IV ONE (10:38)
[2019-03-15] MEDS ORDERED: HEPARIN 10,000 UNIT/10 ML VIAL ONE (10:38)
[2019-03-15 10:45] LABS: ABG Base Excess -5.8 MMOL/L (-2.5-2.5); ABG HCO3 19.7 MMOL/L (20-26); ABG PH 7.332 (7.35-7.45); ABG TCO2 18.3 MMOL/L (23-27); Glucose Heart Surgery 169 MG/DL (74-106); Hematocrit Heart Surgery 26.3 PERCENT (37-47); Hemoglobin Heart Surgery 8.5 G/DL (12.0-16.0); PH Patient Temp Arterial 7.332; Patient Temperature 37 CELCIUS; Potassium Heart/CVR 4.3 MMOL/L (3.5-5.1); Sodium Heart/CVR 134 MMOL/L (135-145)
[2019-03-15] MEDS ORDERED: MORPHINE 10 MG/1 ML VIAL IV PRN (11:39)
[2019-03-15] MEDS ORDERED: MAGNESIUM SULF RIDER 2 GM in PREMIX 1 EACH IV PRN (11:39)
[2019-03-15] MEDS ORDERED: MAGNESIUM SULF RIDER 4 GM in PREMIX 1 EACH IV PRN (11:39)
[2019-03-15] MEDS ORDERED: MIDAZOLAM 2 MG/2 ML VIAL IV PRN (11:39)
[2019-03-15] MEDS ORDERED: INSULIN REGULAR 100 UNIT/ML IV PRN (11:39)
[2019-03-15] MEDS ORDERED: ACETAMINOPHEN 650 MG SUPP RECTAL PRN (11:39)
[2019-03-15] MEDS ORDERED: SODIUM CHLORIDE 0.9% 250 ML IV PRN (11:39)
[2019-03-15] MEDS ORDERED: CHLORHEXIDINE 4% SOLN 118 ML BOTTLE TOP PRN (11:39)
[2019-03-15] MEDS ORDERED: ONDANSETRON 4 MG/2 ML VIAL IV PRN (11:39)
[2019-03-15] MEDS ORDERED: POTASSIUM CHLORIDE RIDER 10 MEQ in PREMIX 1 EACH IV PRN (11:39)
[2019-03-15] MEDS ORDERED: CALCIUM CHLORIDE 1,000 MG/10 ML SYRINGE IV PRN (11:39)
[2019-03-15] MEDS ORDERED: DEXTROSE 50% 25 GM/50 ML VIAL IV PRN ×2 (11:39)
[2019-03-15] MEDS ORDERED: POTASSIUM CHLORIDE RIDER 20 MEQ in PREMIX 1 EACH IV PRN (11:39)
[2019-03-15] MEDS ORDERED: ALBUMIN 5% 12.5 GM in PREMIX 1 EACH IV PRN (11:39)
[2019-03-15] MEDS ORDERED: SODIUM CHLORIDE 0.45% 1,000 ML IV SCH ×2 (12:00)
[2019-03-15] MEDS ORDERED: NITROPRUSSIDE 50 MG/2 ML VIAL ONE (12:11)
[2019-03-15] MEDS ORDERED: NITROPRUSSIDE 100 MG in DEXTROSE 5% 246 ML IV PRN (12:30)
[2019-03-15] MEDS ORDERED: METOPROLOL TARTRATE 5 MG/5 ML VIAL IV ONE (12:38)
[2019-03-15 12:41] LABS: VBG Base Excess -4.6 MEQ/L (0-4); VBG HCO3 20.2 MEQ/L (24-28); VBG PH 7.233; VBG PO2 44.5 MMHG (17-40)
[2019-03-15 12:50] LABS: INR 1.1; PT Patient Result 11.7 SECS (9.6-12.2); Partial Thromboplastin Time 24.7 SECS (20.8-36.0)
[2019-03-15 12:55] LABS: Basophils % 0.2 % (0.0-0.8); Eosinophils # 0.1 10*3/uL (0.0-0.87); Eosinophils % 0.5 % (0.00-10.9); Hematocrit 22.6 VOL% (35.7-47.0); Hemoglobin 7.3 GM/DL (12.0-16.0); Immature Granulocytes % 0.5 %; Immature Granulocytes Absolute 0.05 #; Lymphocytes # 1.4 10*3/uL (1.4-4.0); Lymphocytes % 13.1 % (21.3-54.2); Mean Corpuscular HGB Conc 32.3 GM/DL (32-36); Monocytes % 3.5 % (1.7-12.7); Neutrophils % 82.2 % (38.7-73.9); Platelet Count 235 T/CUMM (130-400); Red Blood Count 2.43 MC/CUMM (3.8-5.5); Red Cell Distribution Width 14.7 % (9.3-17.3); White Blood Count 10.9 T/CUMM (4-12)
[2019-03-15 13:08] LABS: Platelet Estimate Normal
[2019-03-15 13:09] LABS: Anisocytosis 1+; Basophilic Stippling Slight; Blood Urea Nitrogen 23 MG/DL (7-18); Calcium 9.3 MG/DL (8.5-10.1); Estimated Glom Filtration Rate 17 ML/MIN; Glucose 179 MG/DL (74-106); Osmolality,Calculated 286.4 MOS/KG (273-304)
[2019-03-15 13:10] LABS: Macrocytosis Slight
[2019-03-15] MEDS: CHLORHEXIDINE 0.12% ORAL RINSE 60 ML BOTTLE SWISH/SPIT SCH ×2 (14:30→20:57)
[2019-03-15] MEDS: SODIUM CHLORIDE 0.9% 1,000 ML IV SCH (14:30)
[2019-03-15] MEDS ORDERED: INSULIN REGULAR DRIP 100 ML IV PRN (14:42)
[2019-03-15 17:49] LABS: ABG Base Excess -5.8 MMOL/L (-2.5-2.5); ABG HCO3 19.6 MMOL/L (20-26); ABG Oxygen Saturation 98.8 % (95-100); ABG PCO2 42.1 MM HG (35-48); ABG PH 7.293 (7.35-7.45); ABG TCO2 19.4 MMOL/L (23-27); Glucose Heart Surgery 213 MG/DL (74-106); Hemoglobin Heart Surgery 7.4 G/DL (12.0-16.0); Potassium Heart/CVR 4.7 MMOL/L (3.5-5.1)
[2019-03-15] MEDS ORDERED: LACTATED RINGERS 250 ML IV ONE (18:08)
[2019-03-15] MEDS: CEFUROXIME INJ 1,500 MG in SYRINGE 1 EACH IV SCH (19:58)
[2019-03-15] MEDS: MORPHINE 4 MG/1 ML VIAL IV PRN (22:20)
[2019-03-16 04:45] LABS: Basophils % 0.1 % (0.0-0.8); Hematocrit 21.2 VOL% (35.7-47.0); Hemoglobin 6.7 GM/DL (12.0-16.0); Immature Granulocytes % 0.5 %; Immature Granulocytes Absolute 0.04 #; Lymphocytes # 0.6 10*3/uL (1.4-4.0); Lymphocytes % 7.2 % (21.3-54.2); Mean Corpuscular HGB Conc 31.6 GM/DL (32-36); Mean Corpuscular Volume 95.9 FL (87-102); Mean Platelet Volume 9.9 FL (9.6-12.0); Monocytes % 7.1 % (1.7-12.7); Neutrophils % 85.1 % (38.7-73.9); Platelet Count 176 T/CUMM (130-400); Red Blood Count 2.21 MC/CUMM (3.8-5.5); Red Cell Distribution Width 15.6 % (9.3-17.3); White Blood Count 7.6 T/CUMM (4-12)
[2019-03-16 05:05] LABS: Calcium 9.4 MG/DL (8.5-10.1)
[2019-03-16 05:09] LABS: ABG Base Excess -6.7 MMOL/L (-2.5-2.5); ABG Oxygen Saturation 97.6 % (95-100); ABG PCO2 38.7 MM HG (35-48); ABG PH 7.309 (7.35-7.45); ABG PO2 119.2 MM HG (80-95); ABG TCO2 20.2 MMOL/L (23-27); Glucose Heart Surgery 105 MG/DL (74-106); Hemoglobin Heart Surgery 7.4 G/DL (12.0-16.0); Potassium Heart/CVR 5.1 MMOL/L (3.5-5.1)
[2019-03-16] MEDS: CEFUROXIME INJ 1,500 MG in SYRINGE 1 EACH IV SCH ×2 (08:41→20:00)
[2019-03-16] MEDS: CHLORHEXIDINE 0.12% ORAL RINSE 60 ML BOTTLE SWISH/SPIT SCH ×2 (08:42→20:31)
[2019-03-16] MEDS: PANTOPRAZOLE 40 MG VIAL IV SCH (08:42)
[2019-03-16] MEDS ORDERED: ENOXAPARIN 30 MG/0.3 ML SYRINGE SUBCUT SCH (09:00)
[2019-03-16] MEDS: MORPHINE 4 MG/1 ML VIAL IV PRN ×2 (09:33→20:31)
[2019-03-16] MEDS: ASPIRIN EC 325 MG TABLET PO SCH (11:11)
[2019-03-16] MEDS: METOPROLOL TARTRATE 25 MG TABLET PO SCH ×2 (11:11→20:31)
[2019-03-16] MEDS ORDERED: FUROSEMIDE 40 MG TABLET PO SCH (11:39)
[2019-03-16] MEDS ORDERED: ATORVASTATIN 40 MG TABLET PO SCH (11:39)
[2019-03-16] MEDS: hydrALAZINE 25 MG TABLET PO SCH (20:31)
[2019-03-16] MEDS: ATORVASTATIN 40 MG TABLET PO SCH (20:31)
[2019-03-17 05:12] LABS: Basophils % 0.1 % (0.0-0.8); Hematocrit 29.3 VOL% (35.7-47.0); Hemoglobin 9.7 GM/DL (12.0-16.0); Immature Granulocytes % 0.6 %; Immature Granulocytes Absolute 0.05 #; Lymphocytes # 0.8 10*3/uL (1.4-4.0); Lymphocytes % 9.2 % (21.3-54.2); Mean Corpuscular HGB Conc 33.1 GM/DL (32-36); Mean Corpuscular Volume 89.3 FL (87-102); Neutrophils % 82.1 % (38.7-73.9); Platelet Count 140 T/CUMM (130-400); Red Blood Count 3.28 MC/CUMM (3.8-5.5); Red Cell Distribution Width 15.9 % (9.3-17.3); White Blood Count 8.3 T/CUMM (4-12)
[2019-03-17 05:27] LABS: Calcium 8.6 MG/DL (8.5-10.1); Osmolality,Calculated 278.7 MOS/KG (273-304)
[2019-03-17] MEDS: CHLORHEXIDINE 0.12% ORAL RINSE 60 ML BOTTLE SWISH/SPIT SCH ×2 (08:14→22:00)
[2019-03-17] MEDS: hydrALAZINE 25 MG TABLET PO SCH ×2 (08:14→22:00)
[2019-03-17] MEDS: PANTOPRAZOLE 40 MG VIAL IV SCH (08:14)
[2019-03-17] MEDS: ASPIRIN EC 325 MG TABLET PO SCH (08:14)
[2019-03-17] MEDS: METOPROLOL TARTRATE 25 MG TABLET PO SCH ×2 (08:14→22:00)
[2019-03-17] MEDS ORDERED: LACTATED RINGERS 250 ML IV ONE (09:57)
[2019-03-17] MEDS: ATORVASTATIN 40 MG TABLET PO SCH (22:00)
[2019-03-18 05:11] LABS: Calcium 8.5 MG/DL (8.5-10.1); Osmolality,Calculated 282.1 MOS/KG (273-304)
[2019-03-18 05:18] LABS: Basophils % 0.1 % (0.0-0.8); Eosinophils # 0.1 10*3/uL (0.0-0.87); Eosinophils % 0.6 % (0.00-10.9); Hematocrit 27.5 VOL% (35.7-47.0); Hemoglobin 9.1 GM/DL (12.0-16.0); Immature Granulocytes % 0.6 %; Immature Granulocytes Absolute 0.05 #; Lymphocytes # 0.7 10*3/uL (1.4-4.0); Lymphocytes % 8.1 % (21.3-54.2); Mean Corpuscular HGB Conc 33.1 GM/DL (32-36); Mean Corpuscular Volume 91.7 FL (87-102); Mean Platelet Volume 10.3 FL (9.6-12.0); Monocytes % 8.9 % (1.7-12.7); Neutrophils % 81.7 % (38.7-73.9); Platelet Count 126 T/CUMM (130-400); Red Cell Distribution Width 15.2 % (9.3-17.3); White Blood Count 8.3 T/CUMM (4-12)
[2019-03-18] MEDS: CHLORHEXIDINE 0.12% ORAL RINSE 60 ML BOTTLE SWISH/SPIT SCH ×2 (08:00→20:44)
[2019-03-18] MEDS: MORPHINE 4 MG/1 ML VIAL IV PRN (08:28)
[2019-03-18] MEDS ORDERED: ASPIRIN EC 81 MG TABLET PO SCH (09:00)
[2019-03-18] MEDS ORDERED: HEPARIN 10,000 UNIT/10 ML VIAL IV SCH (12:30)
[2019-03-18] MEDS: hydrALAZINE 25 MG TABLET PO SCH ×2 (14:10→20:44)
[2019-03-18] MEDS: METOPROLOL TARTRATE 25 MG TABLET PO SCH ×2 (14:10→20:46)
[2019-03-18] MEDS: ASPIRIN EC 325 MG TABLET PO SCH (14:10)
[2019-03-18] MEDS: PANTOPRAZOLE 40 MG VIAL IV SCH (14:20)
[2019-03-18] MEDS: ATORVASTATIN 40 MG TABLET PO SCH (20:43)
[2019-03-19] MEDS: PANTOPRAZOLE 40 MG VIAL IV SCH (09:26)
[2019-03-19] MEDS: ASPIRIN EC 325 MG TABLET PO SCH (09:26)
[2019-03-19] MEDS: METOPROLOL TARTRATE 25 MG TABLET PO SCH ×2 (09:27→20:36)
[2019-03-19] MEDS: CHLORHEXIDINE 0.12% ORAL RINSE 60 ML BOTTLE SWISH/SPIT SCH ×2 (09:27→20:36)
[2019-03-19] MEDS: hydrALAZINE 25 MG TABLET PO SCH ×2 (09:27→20:36)
[2019-03-19] MEDS: MORPHINE 4 MG/1 ML VIAL IV PRN (13:28)
[2019-03-19] MEDS: ATORVASTATIN 40 MG TABLET PO SCH (20:36)
[2019-03-20] MEDS: PANTOPRAZOLE 40 MG VIAL IV SCH (13:05)
[2019-03-20] MEDS: CHLORHEXIDINE 0.12% ORAL RINSE 60 ML BOTTLE SWISH/SPIT SCH ×2 (13:06→22:06)
[2019-03-20] MEDS: METOPROLOL TARTRATE 25 MG TABLET PO SCH ×2 (13:06→20:52)
[2019-03-20] MEDS: hydrALAZINE 25 MG TABLET PO SCH ×2 (13:06→20:51)
[2019-03-20] MEDS: ASPIRIN EC 325 MG TABLET PO SCH (13:07)
[2019-03-20] MEDS: ATORVASTATIN 40 MG TABLET PO SCH (20:51)
[2019-03-21 07:56] LABS: Basophils % 0.5 % (0.0-0.8); Eosinophils # 0.2 10*3/uL (0.0-0.87); Hematocrit 28.9 VOL% (35.7-47.0); Hemoglobin 9.3 GM/DL (12.0-16.0); Immature Granulocytes % 0.4 %; Immature Granulocytes Absolute 0.03 #; Lymphocytes # 0.6 10*3/uL (1.4-4.0); Lymphocytes % 7.5 % (21.3-54.2); Mean Corpuscular HGB Conc 32.2 GM/DL (32-36); Mean Corpuscular Volume 92.6 FL (87-102); Mean Platelet Volume 9.6 FL (9.6-12.0); Monocytes % 7.1 % (1.7-12.7); Neutrophils % 81.5 % (38.7-73.9); Platelet Count 231 T/CUMM (130-400); Red Blood Count 3.12 MC/CUMM (3.8-5.5); Red Cell Distribution Width 13.7 % (9.3-17.3); White Blood Count 7.7 T/CUMM (4-12)
[2019-03-21 08:24] LABS: Calcium 8.7 MG/DL (8.5-10.1); Osmolality,Calculated 273.7 MOS/KG (273-304)
[2019-03-21] MEDS: PANTOPRAZOLE 40 MG VIAL IV SCH (09:26)
[2019-03-21] MEDS: hydrALAZINE 25 MG TABLET PO SCH ×2 (09:27→21:08)
[2019-03-21] MEDS: CHLORHEXIDINE 0.12% ORAL RINSE 60 ML BOTTLE SWISH/SPIT SCH ×2 (09:27→21:08)
[2019-03-21] MEDS: ASPIRIN EC 325 MG TABLET PO SCH (09:27)
[2019-03-21] MEDS: METOPROLOL TARTRATE 25 MG TABLET PO SCH ×2 (09:27→21:07)
[2019-03-21] MEDS: ATORVASTATIN 40 MG TABLET PO SCH (21:07)
[2019-03-22 04:29] LABS: Basophils % 0.4 % (0.0-0.8); Eosinophils # 0.2 10*3/uL (0.0-0.87); Eosinophils % 3.2 % (0.00-10.9); Hematocrit 28.1 VOL% (35.7-47.0); Hemoglobin 9.2 GM/DL (12.0-16.0); Immature Granulocytes % 0.8 %; Immature Granulocytes Absolute 0.06 #; Lymphocytes # 0.8 10*3/uL (1.4-4.0); Lymphocytes % 10.8 % (21.3-54.2); Mean Corpuscular HGB Conc 32.7 GM/DL (32-36); Mean Corpuscular Volume 90.1 FL (87-102); Mean Platelet Volume 9.7 FL (9.6-12.0); Neutrophils % 76.8 % (38.7-73.9); Platelet Count 243 T/CUMM (130-400); Red Blood Count 3.12 MC/CUMM (3.8-5.5); Red Cell Distribution Width 13.4 % (9.3-17.3); White Blood Count 7.5 T/CUMM (4-12)
[2019-03-22 04:40] LABS: Calcium 8.8 MG/DL (8.5-10.1); Osmolality,Calculated 281.5 MOS/KG (273-304)
[2019-03-22] MEDS: hydrALAZINE 25 MG TABLET PO SCH (08:50)
[2019-03-22] MEDS: METOPROLOL TARTRATE 25 MG TABLET PO SCH (08:50)
[2019-03-22] MEDS: ASPIRIN EC 325 MG TABLET PO SCH (08:50)
[2019-03-22] MEDS: CHLORHEXIDINE 0.12% ORAL RINSE 60 ML BOTTLE SWISH/SPIT SCH (08:51)
[2019-03-22] MEDS: PANTOPRAZOLE 40 MG VIAL IV SCH (10:44)
[2019-03-22 12:15] VITALS: BP 146/82
[2019-03-22] MEDS ORDERED: diphenhydrAMINE 2% CREAM 28 GM TUBE TOP PRN (15:00)
== END 2019-03-22 15:42 | DRG 235 ==
LOC: N.TELEN → N.CVR 03-15 07:59 → N.TELEN 03-15 08:24 → N.CVR 03-15 11:38 → N.ICU 03-16 19:25 → N.TELES 03-18 13:26
PROVIDERS: ADMIT Thoracic Surgery (Cardiothoracic Vascular Surgery); ATTEND Thoracic Surgery (Cardiothoracic Vascular Surgery)

== ENCOUNTER 2020-11-12 22:16 | Inpatient (IN) ==
[2020-11-12] MEDS ORDERED: NITROGLYCERIN SL 0.4 MG TABLET SL STA (23:08)
[2020-11-12] MEDS ORDERED: ASPIRIN 325 MG TABLET PO STA (23:08)
[2020-11-12 23:09] LABS: Basophils % 0.6 % (0.0-0.8); Eosinophils # 0.2 10*3/uL (0.0-0.87); Eosinophils % 3.4 % (0.00-10.9); Immature Granulocytes % 0.6 %; Immature Granulocytes Absolute 0.03 #; Lymphocytes # 1.2 10*3/uL (1.4-4.0); Mean Corpuscular HGB Conc 31.5 GM/DL (32-36); Mean Corpuscular Volume 97.7 FL (87-102); Mean Platelet Volume 9.8 FL (9.6-12.0); Monocytes % 7.4 % (1.7-12.7); Platelet Count 266 T/CUMM (130-400); Red Blood Count 1.72 MC/CUMM (3.8-5.5); Red Cell Distribution Width 17.2 % (9.3-17.3); White Blood Count 5.4 T/CUMM (4-12)
[2020-11-12 23:16] LABS: Hemoglobin 5.3 GM/DL (12.0-16.0)
[2020-11-12 23:17] LABS: Hematocrit 16.8 VOL% (35.7-47.0)
[2020-11-12 23:25] LABS: Alkaline Phosphatase 110 U/L (45-117); Aspartate Amino Transferase 11 U/L (0-37); Calcium 8.1 MG/DL (8.5-10.1)
[2020-11-12 23:26] LABS: Alanine Aminotransferase 14 U/L (13-56); Bilirubin,Total < 0.39 MG/DL (0.2-1.0); Blood Urea Nitrogen 64 MG/DL (7-18); Carbon Dioxide 31 MMOL/L (21-32); Estimated Glom Filtration Rate 6 ML/MIN; Glucose 89 MG/DL (74-106); Osmolality,Calculated 286.1 MOS/KG (273-304); Sodium 135 MMOL/L (136-145); Total Protein 5.9 G/DL (6.4-8.2)
[2020-11-12] MEDS ORDERED: ONDANSETRON 4 MG/2 ML VIAL IV PRN (23:35)
[2020-11-13] MEDS: ACETAMINOPHEN 325 MG TABLET PO PRN ×2 (02:10→09:31)
[2020-11-13] MEDS: PANTOPRAZOLE INJ 200 MG in SODIUM CHLORIDE 0.9% 250 ML IV SCH (02:10)
[2020-11-13 05:43] LABS: Basophils % 0.2 % (0.0-0.8); Eosinophils # 0.2 10*3/uL (0.0-0.87); Eosinophils % 3.8 % (0.00-10.9); Immature Granulocytes % 0.6 %; Immature Granulocytes Absolute 0.03 #; Lymphocytes # 1.1 10*3/uL (1.4-4.0); Lymphocytes % 21.7 % (21.3-54.2); Mean Corpuscular HGB Conc 31.4 GM/DL (32-36); Mean Corpuscular Volume 97.5 FL (87-102); Mean Platelet Volume 9.9 FL (9.6-12.0); Monocytes % 7.4 % (1.7-12.7); Neutrophils % 66.3 % (38.7-73.9); Platelet Count 224 T/CUMM (130-400); Red Blood Count 1.57 MC/CUMM (3.8-5.5); Red Cell Distribution Width 17.2 % (9.3-17.3)
[2020-11-13 05:48] LABS: Hematocrit 15.3 VOL% (35.7-47.0); Hemoglobin 4.8 GM/DL (12.0-16.0)
[2020-11-13 06:00] LABS: Alanine Aminotransferase 12 U/L (13-56); Albumin 2.4 G/DL (3.4-5.0); Alkaline Phosphatase 100 U/L (45-117); Aspartate Amino Transferase 9 U/L (0-37); Bilirubin,Total < 0.39 MG/DL (0.2-1.0); Blood Urea Nitrogen 65 MG/DL (7-18); Calcium 7.9 MG/DL (8.5-10.1); Carbon Dioxide 28 MMOL/L (21-32); Estimated Glom Filtration Rate 6 ML/MIN; Glucose 90 MG/DL (74-106); Osmolality,Calculated 284.4 MOS/KG (273-304); Potassium 4.8 MMOL/L (3.5-5.1); Sodium 133 MMOL/L (136-145); Total Protein 5.4 G/DL (6.4-8.2)
[2020-11-13 06:04] LABS: Hypochromasia Slight; Microcytosis 1+; Platelet Estimate Normal
[2020-11-13] MEDS ORDERED: SODIUM CHLORIDE 0.9% 1,000 ML IV PRN (07:17)
[2020-11-13] MEDS ORDERED: PANTOPRAZOLE 40 MG VIAL IV SCH (09:00)
[2020-11-13 09:01] LABS: % Iron Saturation 40.2 % (18-50); Ferritin 1069.1 ng/ml (8-252)
[2020-11-13 13:37] LABS: Hematocrit 21.3 VOL% (35.7-47.0)
[2020-11-13 13:49] LABS: Hemoglobin 6.9 GM/DL (12.0-16.0)
[2020-11-13] MEDS ORDERED: NITROGLYCERIN SL 0.4 MG TABLET SL PRN (20:51)
[2020-11-14] MEDS: METOPROLOL TARTRATE 25 MG TABLET PO SCH ×3 (00:38→21:59)
[2020-11-14] MEDS: ATORVASTATIN 40 MG TABLET PO SCH ×2 (00:38→21:59)
[2020-11-14] MEDS: carBAMazepine 200 MG TABLET PO SCH ×3 (00:39→21:59)
[2020-11-14] MEDS: SEVELAMER CARBONATE 800 MG TABLET PO SCH ×4 (00:39→16:42)
[2020-11-14] MEDS: PANTOPRAZOLE INJ 200 MG in SODIUM CHLORIDE 0.9% 250 ML IV SCH (02:37)
[2020-11-14 06:53] LABS: Basophils # 0.1 10*3/uL (0.0-0.2); Basophils % 1.5 % (0.0-0.8); Eosinophils # 0.2 10*3/uL (0.0-0.87); Eosinophils % 4.9 % (0.00-10.9); Hematocrit 21.4 VOL% (35.7-47.0); Hemoglobin 7.2 GM/DL (12.0-16.0); Immature Granulocytes % 0.2 %; Immature Granulocytes Absolute 0.01 #; Lymphocytes % 21.4 % (21.3-54.2); Mean Corpuscular HGB Conc 33.6 GM/DL (32-36); Mean Corpuscular Volume 93.4 FL (87-102); Monocytes % 6.8 % (1.7-12.7); Neutrophils % 65.2 % (38.7-73.9); Platelet Count 251 T/CUMM (130-400); Red Blood Count 2.29 MC/CUMM (3.8-5.5); Red Cell Distribution Width 16.9 % (9.3-17.3); White Blood Count 4.7 T/CUMM (4-12)
[2020-11-14 07:26] LABS: Calcium 8.2 MG/DL (8.5-10.1); Osmolality,Calculated 273.1 MOS/KG (273-304); Potassium 4.9 MMOL/L (3.5-5.1)
[2020-11-14] MEDS ORDERED: SODIUM CHLORIDE 0.9% 1,000 ML IV SCH (08:00)
[2020-11-14] MEDS: ISOSORBIDE MONONITRATE 30 MG TABLET PO SCH (08:14)
[2020-11-14] MEDS ORDERED: LIDOCAINE 2% 5 ML VIAL ONE (14:39)
[2020-11-14] MEDS ORDERED: propofoL 200 MG/20 ML VIAL IV ONE (14:39)
[2020-11-14] MEDS ORDERED: hydrALAZINE 20 MG/1 ML VIAL IV PRN (16:17)
[2020-11-14] MEDS ORDERED: SODIUM CHLORIDE 0.9% 1,000 ML IV PRN (16:20)
[2020-11-14] MEDS: ACETAMINOPHEN 325 MG TABLET PO PRN (16:43)
[2020-11-14 16:54] LABS: Hematocrit 24.2 VOL% (35.7-47.0); Hemoglobin 7.8 GM/DL (12.0-16.0)
[2020-11-15 05:58] LABS: Basophils # 0.1 10*3/uL (0.0-0.2); Basophils % 0.8 % (0.0-0.8); Eosinophils # 0.2 10*3/uL (0.0-0.87); Eosinophils % 3.5 % (0.00-10.9); Hematocrit 24.3 VOL% (35.7-47.0); Hemoglobin 7.7 GM/DL (12.0-16.0); Immature Granulocytes % 0.5 %; Immature Granulocytes Absolute 0.03 #; Lymphocytes # 0.9 10*3/uL (1.4-4.0); Lymphocytes % 14.9 % (21.3-54.2); Mean Corpuscular HGB Conc 31.7 GM/DL (32-36); Mean Corpuscular Volume 95.7 FL (87-102); Mean Platelet Volume 9.6 FL (9.6-12.0); Monocytes % 6.8 % (1.7-12.7); Neutrophils % 73.5 % (38.7-73.9); Platelet Count 296 T/CUMM (130-400); Red Blood Count 2.54 MC/CUMM (3.8-5.5); Red Cell Distribution Width 16.2 % (9.3-17.3)
[2020-11-15 06:11] LABS: Calcium 8.2 MG/DL (8.5-10.1); Osmolality,Calculated 271.4 MOS/KG (273-304); Potassium 5.5 MMOL/L (3.5-5.1)
[2020-11-15] MEDS: SEVELAMER CARBONATE 800 MG TABLET PO SCH ×2 (08:05→13:50)
[2020-11-15] MEDS: PANTOPRAZOLE INJ 200 MG in SODIUM CHLORIDE 0.9% 250 ML IV SCH (08:05)
[2020-11-15] MEDS: ISOSORBIDE MONONITRATE 30 MG TABLET PO SCH (13:50)
[2020-11-15] MEDS: METOPROLOL TARTRATE 25 MG TABLET PO SCH (13:50)
[2020-11-15] MEDS: carBAMazepine 200 MG TABLET PO SCH (13:50)
[2020-11-15 14:16] LABS: Hematocrit 31.5 VOL% (35.7-47.0)
[2020-11-15 14:18] LABS: Hemoglobin 10.2 GM/DL (12.0-16.0)
[2020-11-15 16:07] VITALS: BP 143/72
== END 2020-11-15 16:15 | disposition home health service (06) | DRG 377 ==
LOC: N.EDINP 22:16 → N.ED 22:16 → N.TELES 11-13 01:35
PROVIDERS: ADMIT Family Medicine; ATTEND Family Medicine

== ENCOUNTER 2020-12-16 23:27 | Inpatient (IN) ==
[2020-12-17] MEDS ORDERED: methylPREDNISolone SOD SUC 125 MG/2 ML VIAL IV STA (00:43)
[2020-12-17] MEDS ORDERED: FAMOTIDINE 20 MG/2 ML VIAL IV STA (00:43)
[2020-12-17] MEDS ORDERED: diphenhydrAMINE 50 MG/1 ML VIAL IV STA (00:43)
[2020-12-17 01:39] LABS: Basophils % 0.5 % (0.0-0.8); Eosinophils # 0.1 10*3/uL (0.0-0.87); Eosinophils % 0.7 % (0.00-10.9); Hematocrit 39.8 VOL% (35.7-47.0); Hemoglobin 12.7 GM/DL (12.0-16.0); Immature Granulocytes % 0.8 %; Immature Granulocytes Absolute 0.06 #; Lymphocytes # 0.6 10*3/uL (1.4-4.0); Lymphocytes % 8.2 % (21.3-54.2); Mean Corpuscular HGB Conc 31.9 GM/DL (32-36); Mean Corpuscular Volume 97.8 FL (87-102); Mean Platelet Volume 9.4 FL (9.6-12.0); Monocytes % 4.4 % (1.7-12.7); Neutrophils % 85.4 % (38.7-73.9); Platelet Count 254 T/CUMM (130-400); Red Blood Count 4.07 MC/CUMM (3.8-5.5); Red Cell Distribution Width 16.3 % (9.3-17.3); White Blood Count 7.4 T/CUMM (4-12)
[2020-12-17 01:59] LABS: Alanine Aminotransferase 14 U/L (13-56); Albumin 4.2 G/DL (3.4-5.0); Alkaline Phosphatase 167 U/L (45-117); Aspartate Amino Transferase 16 U/L (0-37); Bilirubin,Total < 0.39 MG/DL (0.20-1.00); Blood Urea Nitrogen 20 MG/DL (7-18); Calcium 9.7 MG/DL (8.5-10.1); Carbon Dioxide 32 MMOL/L (21-32); Estimated Glom Filtration Rate 8 ML/MIN; Glucose 89 MG/DL (74-106); Osmolality,Calculated 276.7 MOS/KG (273-304); Potassium 3.8 MMOL/L (3.5-5.1); Sodium 138 MMOL/L (136-145); Total Protein 8.1 G/DL (6.4-8.2)
[2020-12-17] MEDS ORDERED: ONDANSETRON 4 MG/2 ML VIAL IV PRN (03:56)
[2020-12-17] MEDS ORDERED: ZALEPLON 5 MG CAPSULE PO PRN (03:56)
[2020-12-17] MEDS ORDERED: ALBUTEROL 2.5 MG/3 ML NEB RESP TX PRN (03:56)
[2020-12-17] MEDS ORDERED: HYDROmorphone 2 MG/1 ML VIAL IV STA (04:02)
[2020-12-17] MEDS ORDERED: SIMETHICONE CHEW 125 MG TABLET PO PRN (04:04)
[2020-12-17] MEDS ORDERED: NITROGLYCERIN SL 0.4 MG TABLET SL PRN (04:04)
[2020-12-17] MEDS ORDERED: CETIRIZINE 10 MG TABLET PO PRN (04:04)
[2020-12-17] MEDS: ENOXAPARIN 30 MG/0.3 ML SYRINGE SUBCUT SCH (04:50)
[2020-12-17] MEDS: fentaNYL 25 MCG/HR PATCH TRANSDERM SCH ×2 (06:31→16:48)
[2020-12-17 09:13] LABS: Free T4 (Free Thyroxine) 0.84 NG/DL (0.76-1.46); Thyroid Stimulating Hormone 1.46 uIU/ml (0.358-3.74)
[2020-12-17] MEDS: ISOSORBIDE MONONITRATE 30 MG TABLET PO SCH (10:32)
[2020-12-17] MEDS: FERROUS SULFATE 325 MG TABLET PO SCH (10:32)
[2020-12-17] MEDS: ASPIRIN EC 81 MG TABLET PO SCH (10:32)
[2020-12-17] MEDS: METOPROLOL TARTRATE 25 MG TABLET PO SCH ×2 (10:33→20:01)
[2020-12-17] MEDS: methylPREDNISolone SOD SUC 40 MG/1 ML VIAL IV SCH ×2 (14:40→20:01)
[2020-12-17] MEDS: FAMOTIDINE 20 MG/2 ML VIAL IV SCH ×2 (14:42→20:01)
[2020-12-17] MEDS: SEVELAMER CARBONATE 800 MG TABLET PO SCH (16:48)
[2020-12-17] MEDS ORDERED: hydrALAZINE 20 MG/1 ML VIAL IV PRN (19:08)
[2020-12-17] MEDS ORDERED: LABETALOL 20 MG/4 ML SYRINGE IV PRN (19:12)
[2020-12-17] MEDS: HYDROmorphone 2 MG/1 ML VIAL IV PRN (21:00)
[2020-12-18] MEDS: HYDROmorphone 2 MG/1 ML VIAL IV PRN ×4 (00:11→22:58)
[2020-12-18] MEDS ORDERED: HYDROmorphone 2 MG/1 ML VIAL IV ONE (00:47)
[2020-12-18] MEDS: methylPREDNISolone SOD SUC 40 MG/1 ML VIAL IV SCH ×3 (04:36→21:12)
[2020-12-18] MEDS: ENOXAPARIN 30 MG/0.3 ML SYRINGE SUBCUT SCH (04:36)
[2020-12-18 06:52] LABS: Basophils % 0.1 % (0.0-0.8); Hematocrit 40.3 VOL% (35.7-47.0); Hemoglobin 12.8 GM/DL (12.0-16.0); Immature Granulocytes % 0.9 %; Immature Granulocytes Absolute 0.08 #; Lymphocytes # 0.6 10*3/uL (1.4-4.0); Lymphocytes % 7.1 % (21.3-54.2); Mean Corpuscular HGB Conc 31.8 GM/DL (32-36); Mean Corpuscular Volume 100.2 FL (87-102); Mean Platelet Volume 10.7 FL (9.6-12.0); Monocytes % 5.7 % (1.7-12.7); NRBC # 0.02 10*3/uL; Neutrophils % 86.2 % (38.7-73.9); Platelet Count 212 T/CUMM (130-400); Red Blood Count 4.02 MC/CUMM (3.8-5.5); Red Cell Distribution Width 16.6 % (9.3-17.3); White Blood Count 8.8 T/CUMM (4-12)
[2020-12-18 07:04] LABS: Alanine Aminotransferase 13 U/L (13-56); Albumin 3.3 G/DL (3.4-5.0); Alkaline Phosphatase 135 U/L (45-117); Aspartate Amino Transferase 15 U/L (0-37); Bilirubin,Total < 0.39 MG/DL (0.20-1.00); Blood Urea Nitrogen 33 MG/DL (7-18); Calcium 8.8 MG/DL (8.5-10.1); Carbon Dioxide 23 MMOL/L (21-32); Estimated Glom Filtration Rate 6 ML/MIN; Glucose 93 MG/DL (74-106); Osmolality,Calculated 285.4 MOS/KG (273-304); Potassium 4.6 MMOL/L (3.5-5.1); Sodium 140 MMOL/L (136-145); Total Protein 7.3 G/DL (6.4-8.2)
[2020-12-18] MEDS: FERROUS SULFATE 325 MG TABLET PO SCH (08:27)
[2020-12-18] MEDS: ISOSORBIDE MONONITRATE 30 MG TABLET PO SCH (08:27)
[2020-12-18] MEDS: ASPIRIN EC 81 MG TABLET PO SCH (08:27)
[2020-12-18] MEDS: FAMOTIDINE 20 MG/2 ML VIAL IV SCH ×2 (08:27→21:10)
[2020-12-18] MEDS: METOPROLOL TARTRATE 25 MG TABLET PO SCH ×2 (08:27→21:15)
[2020-12-18] MEDS: SEVELAMER CARBONATE 800 MG TABLET PO SCH ×3 (08:27→16:50)
[2020-12-18] MEDS ORDERED: cloNIDine 0.3 MG/24 HR PATCH TRANSDERM SCH (12:00)
[2020-12-18 13:12] LABS: Hepatitis B Core IgM Quant 0.26 Index; Hepatitis B Surface Ag Quant < 0.10 Index; Hepatitis B Surface Ag Result Non-Reactive (NonReactive); Hepatitis C Virus Ab Quant 0.05 Index; Hepatitis C Virus Ab Result Non-Reactive (NonReactive)
[2020-12-18] MEDS: ALBUTEROL 2.5 MG/3 ML NEB RESP TX SCH ×3 (15:14→23:40)
[2020-12-18] MEDS: diphenhydrAMINE 50 MG/1 ML VIAL IV SCH ×2 (16:08→21:11)
[2020-12-19] MEDS: diphenhydrAMINE 50 MG/1 ML VIAL IV SCH ×3 (02:46→09:11)
[2020-12-19] MEDS: ALBUTEROL 2.5 MG/3 ML NEB RESP TX SCH ×6 (03:32→23:20)
[2020-12-19] MEDS: ENOXAPARIN 30 MG/0.3 ML SYRINGE SUBCUT SCH (05:27)
[2020-12-19] MEDS: methylPREDNISolone SOD SUC 40 MG/1 ML VIAL IV SCH ×3 (05:27→21:53)
[2020-12-19 07:49] LABS: Basophils % 0.2 % (0.0-0.8); Hematocrit 41.4 VOL% (35.7-47.0); Hemoglobin 12.5 GM/DL (12.0-16.0); Immature Granulocytes % 0.4 %; Immature Granulocytes Absolute 0.04 #; Lymphocytes # 0.6 10*3/uL (1.4-4.0); Lymphocytes % 5.9 % (21.3-54.2); Mean Corpuscular HGB Conc 30.2 GM/DL (32-36); Mean Corpuscular Volume 102.7 FL (87-102); Mean Platelet Volume 9.7 FL (9.6-12.0); Monocytes % 2.9 % (1.7-12.7); NRBC # 0.02 10*3/uL; Neutrophils % 90.6 % (38.7-73.9); Platelet Count 272 T/CUMM (130-400); Red Blood Count 4.03 MC/CUMM (3.8-5.5); White Blood Count 9.7 T/CUMM (4-12)
[2020-12-19 08:15] LABS: Lymphocytes 8 % (20-55); Nucleated Red Blood Cells 1 (0-5); Platelet Estimate Adequate; Segmented Neutrophils 89 % (50-85); Total Cells Counted 100
[2020-12-19 08:16] LABS: Hypochromasia 1+; Microcytosis 1+
[2020-12-19] MEDS: FAMOTIDINE 20 MG/2 ML VIAL IV SCH ×3 (08:18→21:52)
[2020-12-19] MEDS: ISOSORBIDE MONONITRATE 30 MG TABLET PO SCH ×2 (08:21→09:11)
[2020-12-19] MEDS: SEVELAMER CARBONATE 800 MG TABLET PO SCH ×3 (08:21→16:06)
[2020-12-19] MEDS: METOPROLOL TARTRATE 25 MG TABLET PO SCH ×3 (08:21→21:53)
[2020-12-19] MEDS: FERROUS SULFATE 325 MG TABLET PO SCH ×2 (08:21→09:11)
[2020-12-19] MEDS: ASPIRIN EC 81 MG TABLET PO SCH ×2 (08:21→09:11)
[2020-12-19 08:22] LABS: Alanine Aminotransferase 15 U/L (13-56); Albumin 3.5 G/DL (3.4-5.0); Alkaline Phosphatase 136 U/L (45-117); Aspartate Amino Transferase 12 U/L (0-37); Bilirubin,Total < 0.39 MG/DL (0.20-1.00); Blood Urea Nitrogen 29 MG/DL (7-18); Calcium 8.9 MG/DL (8.5-10.1); Carbon Dioxide 27 MMOL/L (21-32); Estimated Glom Filtration Rate 6 ML/MIN; Glucose 97 MG/DL (74-106); Osmolality,Calculated 282.5 MOS/KG (273-304); Potassium 4.8 MMOL/L (3.5-5.1); Sodium 139 MMOL/L (136-145); Total Protein 7.7 G/DL (6.4-8.2)
[2020-12-19] MEDS: NYSTATIN 500,000 UNIT/5 ML UDCUP SWISH/SWAL SCH ×3 (08:22→21:52)
[2020-12-19] MEDS: HYDROmorphone 2 MG/1 ML VIAL IV PRN ×3 (10:57→23:23)
[2020-12-20] MEDS: ALBUTEROL 2.5 MG/3 ML NEB RESP TX SCH ×6 (02:40→23:31)
[2020-12-20] MEDS: methylPREDNISolone SOD SUC 40 MG/1 ML VIAL IV SCH ×3 (04:45→21:40)
[2020-12-20] MEDS: HYDROmorphone 2 MG/1 ML VIAL IV PRN ×3 (05:02→16:50)
[2020-12-20 06:13] LABS: Hematocrit 36.8 VOL% (35.7-47.0); Hemoglobin 11.6 GM/DL (12.0-16.0); Immature Granulocytes % 0.7 %; Immature Granulocytes Absolute 0.05 #; Lymphocytes # 0.5 10*3/uL (1.4-4.0); Lymphocytes % 6.7 % (21.3-54.2); Mean Corpuscular HGB Conc 31.5 GM/DL (32-36); Mean Corpuscular Volume 100.5 FL (87-102); Monocytes % 4.2 % (1.7-12.7); NRBC # 0.03 10*3/uL; Neutrophils % 88.4 % (38.7-73.9); Platelet Count 278 T/CUMM (130-400); Red Blood Count 3.66 MC/CUMM (3.8-5.5); Red Cell Distribution Width 16.8 % (9.3-17.3); White Blood Count 7.4 T/CUMM (4-12)
[2020-12-20 06:44] LABS: Albumin 3.4 G/DL (3.4-5.0); Bilirubin,Total 0.4 MG/DL (0.20-1.00); Calcium 8.8 MG/DL (8.5-10.1); Osmolality,Calculated 290.4 MOS/KG (273-304); Potassium 5.1 MMOL/L (3.5-5.1); Total Protein 7.3 G/DL (6.4-8.2)
[2020-12-20] MEDS: ASPIRIN EC 81 MG TABLET PO SCH (09:04)
[2020-12-20] MEDS: SEVELAMER CARBONATE 800 MG TABLET PO SCH ×3 (09:04→16:47)
[2020-12-20] MEDS: NYSTATIN 500,000 UNIT/5 ML UDCUP SWISH/SWAL SCH ×2 (09:05→21:40)
[2020-12-20] MEDS: METOPROLOL TARTRATE 25 MG TABLET PO SCH ×2 (09:05→21:40)
[2020-12-20] MEDS: FERROUS SULFATE 325 MG TABLET PO SCH (09:05)
[2020-12-20] MEDS: ENOXAPARIN 30 MG/0.3 ML SYRINGE SUBCUT SCH (09:07)
[2020-12-20] MEDS: ISOSORBIDE MONONITRATE 30 MG TABLET PO SCH (09:07)
[2020-12-20] MEDS: fentaNYL 25 MCG/HR PATCH TRANSDERM SCH (09:07)
[2020-12-20] MEDS: FAMOTIDINE 20 MG/2 ML VIAL IV SCH ×2 (09:08→21:40)
[2020-12-21] MEDS: ALBUTEROL 2.5 MG/3 ML NEB RESP TX SCH ×5 (03:22→20:40)
[2020-12-21] MEDS: methylPREDNISolone SOD SUC 40 MG/1 ML VIAL IV SCH ×3 (04:53→21:02)
[2020-12-21] MEDS: FERROUS SULFATE 325 MG TABLET PO SCH (09:03)
[2020-12-21] MEDS: NYSTATIN 500,000 UNIT/5 ML UDCUP SWISH/SWAL SCH ×2 (09:03→21:02)
[2020-12-21] MEDS: SEVELAMER CARBONATE 800 MG TABLET PO SCH ×3 (09:03→16:49)
[2020-12-21] MEDS: FAMOTIDINE 20 MG/2 ML VIAL IV SCH ×2 (09:03→21:03)
[2020-12-21] MEDS: ISOSORBIDE MONONITRATE 30 MG TABLET PO SCH (09:03)
[2020-12-21] MEDS: METOPROLOL TARTRATE 25 MG TABLET PO SCH ×2 (09:03→21:02)
[2020-12-21] MEDS: ASPIRIN EC 81 MG TABLET PO SCH (09:03)
[2020-12-21] MEDS: HYDROmorphone 2 MG/1 ML VIAL IV PRN ×3 (09:10→18:36)
[2020-12-21] MEDS: ENOXAPARIN 30 MG/0.3 ML SYRINGE SUBCUT SCH (10:30)
[2020-12-21] MEDS ORDERED: HYDROCORTISONE 2.5% RECTAL CREAM 30 GM TUBE TOP PRN (13:51)
[2020-12-21] MEDS: GABAPENTIN 300 MG CAPSULE PO SCH (21:02)
[2020-12-22] MEDS: ALBUTEROL 2.5 MG/3 ML NEB RESP TX SCH ×7 (00:25→23:10)
[2020-12-22] MEDS: methylPREDNISolone SOD SUC 40 MG/1 ML VIAL IV SCH ×3 (04:44→20:32)
[2020-12-22] MEDS: ASPIRIN EC 81 MG TABLET PO SCH (09:03)
[2020-12-22] MEDS: GABAPENTIN 300 MG CAPSULE PO SCH ×3 (09:03→20:34)
[2020-12-22] MEDS: ISOSORBIDE MONONITRATE 30 MG TABLET PO SCH (09:03)
[2020-12-22] MEDS: FERROUS SULFATE 325 MG TABLET PO SCH (09:04)
[2020-12-22] MEDS: NYSTATIN 500,000 UNIT/5 ML UDCUP SWISH/SWAL SCH ×2 (09:04→20:34)
[2020-12-22] MEDS: METOPROLOL TARTRATE 25 MG TABLET PO SCH ×2 (09:05→20:34)
[2020-12-22] MEDS: FAMOTIDINE 20 MG/2 ML VIAL IV SCH ×2 (09:06→20:34)
[2020-12-22] MEDS: ENOXAPARIN 30 MG/0.3 ML SYRINGE SUBCUT SCH (09:06)
[2020-12-22 09:25] LABS: Basophils % 0.1 % (0.0-0.8); Hematocrit 38.8 VOL% (35.7-47.0); Hemoglobin 12.4 GM/DL (12.0-16.0); Immature Granulocytes % 0.8 %; Immature Granulocytes Absolute 0.06 #; Lymphocytes # 0.5 10*3/uL (1.4-4.0); Lymphocytes % 6.5 % (21.3-54.2); Mean Corpuscular Volume 99.7 FL (87-102); Mean Platelet Volume 9.7 FL (9.6-12.0); Monocytes % 1.8 % (1.7-12.7); NRBC # 0.02 10*3/uL; Neutrophils % 90.8 % (38.7-73.9); Platelet Count 323 T/CUMM (130-400); Red Blood Count 3.89 MC/CUMM (3.8-5.5); Red Cell Distribution Width 16.7 % (9.3-17.3); White Blood Count 7.2 T/CUMM (4-12)
[2020-12-22 09:34] LABS: INR 1.2; PT Patient Result 13.5 SECS (10.5-12.0)
[2020-12-22 09:43] LABS: Alanine Aminotransferase 11 U/L (13-56); Albumin 3.5 G/DL (3.4-5.0); Alkaline Phosphatase 124 U/L (45-117); Aspartate Amino Transferase 8 U/L (0-37); Bilirubin,Total < 0.39 MG/DL (0.20-1.00); Blood Urea Nitrogen 53 MG/DL (7-18); Carbon Dioxide 29 MMOL/L (21-32); Estimated Glom Filtration Rate 4 ML/MIN; Glucose 106 MG/DL (74-106); Osmolality,Calculated 275.7 MOS/KG (273-304); Potassium 4.9 MMOL/L (3.5-5.1); Sodium 131 MMOL/L (136-145); Total Protein 7.8 G/DL (6.4-8.2)
[2020-12-22 09:51] LABS: Band Neutrophils 1 % (0-10); Lymphocytes 5 % (20-55); Segmented Neutrophils 91 % (50-85); Total Cells Counted 100
[2020-12-22 09:52] LABS: Anisocytosis 1+; Hypochromasia 1+; Polychromasia Slight
[2020-12-22 09:53] LABS: Microcytosis 1+; Platelet Estimate Normal
[2020-12-22] MEDS: SEVELAMER CARBONATE 800 MG TABLET PO SCH ×3 (10:16→18:25)
[2020-12-22] MEDS ORDERED: BUPIVACAINE 0.5% 50 ML VIAL ONE (12:06)
[2020-12-22] MEDS ORDERED: DEXAMETHASONE 10 MG/1 ML VIAL ONE (12:06)
[2020-12-22] MEDS ORDERED: TRIAMCINOLONE ACETONIDE 40 MG/1 ML VIAL ONE (12:07)
[2020-12-22] MEDS ORDERED: LIDOCAINE 1% 20 ML VIAL ONE (12:07)
[2020-12-22] MEDS ORDERED: fentaNYL 100 MCG/2 ML VIAL ONE (13:15)
[2020-12-22] MEDS ORDERED: MIDAZOLAM 2 MG/2 ML VIAL ONE (13:16)
[2020-12-22] MEDS ORDERED: PHENYLEPHRINE 1 MG/10 ML SYRINGE IV ONE (13:24)
[2020-12-22] MEDS ORDERED: propofoL 200 MG/20 ML VIAL IV ONE (13:28)
[2020-12-22] MEDS ORDERED: SODIUM CHLORIDE 0.9% 500 ML IV ONE (15:05)
[2020-12-23] MEDS: ALBUTEROL 2.5 MG/3 ML NEB RESP TX SCH ×2 (02:20→08:33)
[2020-12-23] MEDS: methylPREDNISolone SOD SUC 40 MG/1 ML VIAL IV SCH (05:15)
[2020-12-23] MEDS: fentaNYL 25 MCG/HR PATCH TRANSDERM SCH (09:26)
[2020-12-23] MEDS: ENOXAPARIN 30 MG/0.3 ML SYRINGE SUBCUT SCH (09:26)
[2020-12-23] MEDS: GABAPENTIN 300 MG CAPSULE PO SCH (09:27)
[2020-12-23] MEDS: ASPIRIN EC 81 MG TABLET PO SCH (09:27)
[2020-12-23] MEDS: SEVELAMER CARBONATE 800 MG TABLET PO SCH (09:27)
[2020-12-23] MEDS: FAMOTIDINE 20 MG/2 ML VIAL IV SCH (09:28)
[2020-12-23] MEDS: NYSTATIN 500,000 UNIT/5 ML UDCUP SWISH/SWAL SCH (09:28)
[2020-12-23] MEDS: ISOSORBIDE MONONITRATE 30 MG TABLET PO SCH (09:28)
[2020-12-23] MEDS: FERROUS SULFATE 325 MG TABLET PO SCH (09:28)
[2020-12-23] MEDS: METOPROLOL TARTRATE 25 MG TABLET PO SCH (09:28)
[2020-12-23 11:36] VITALS: BP 98/73
== END 2020-12-23 13:00 | disposition home or self-care (01) | DRG 915 ==
LOC: N.ED 23:27 → SUATTDRO 12-17 03:56 → N.EDINP 12-17 03:56 → N.ICU 12-17 15:20 → N.5E 12-18 20:15
PROVIDERS: ADMIT Internal Medicine; ATTEND Family Medicine

== ENCOUNTER 2020-12-25 11:12 | Observation (INO) ==
[2020-12-25] MEDS ORDERED: SODIUM CHLORIDE 0.9% 250 ML IV STA (12:44)
[2020-12-25 14:04] LABS: Alanine Aminotransferase 16 U/L (13-56); Albumin 3.1 G/DL (3.4-5.0); Alkaline Phosphatase 104 U/L (45-117); Aspartate Amino Transferase 26 U/L (0-37); Bilirubin,Total < 0.39 MG/DL (0.20-1.00); Blood Urea Nitrogen 99 MG/DL (7-18); Calcium 8.3 MG/DL (8.5-10.1); Carbon Dioxide 24 MMOL/L (21-32); Estimated Glom Filtration Rate 3 ML/MIN; Glucose 78 MG/DL (74-106); Osmolality,Calculated 297.2 MOS/KG (273-304); Potassium 4.8 MMOL/L (3.5-5.1); Sodium 134 MMOL/L (136-145); Total Protein 6.4 G/DL (6.4-8.2)
[2020-12-25] MEDS ORDERED: ONDANSETRON 4 MG/2 ML VIAL IV PRN (16:00)
[2020-12-25] MEDS ORDERED: ACETAMINOPHEN 325 MG TABLET PO PRN (16:00)
[2020-12-25] MEDS ORDERED: NITROGLYCERIN SL 0.4 MG TABLET SL PRN (16:40)
[2020-12-25] MEDS ORDERED: ALBUTEROL 2.5 MG/3 ML NEB RESP TX PRN ×2 (16:40→21:00)
[2020-12-25 20:28] LABS: Eosinophils # 0.1 10*3/uL (0.0-0.87); Eosinophils % 1.5 % (0.00-10.9); Hematocrit 38.8 VOL% (35.7-47.0); Hemoglobin 12.3 GM/DL (12.0-16.0); Immature Granulocytes Absolute 0.08 #; Mean Corpuscular HGB Conc 31.7 GM/DL (32-36); Mean Corpuscular Volume 98.7 FL (87-102); Mean Platelet Volume 10.2 FL (9.6-12.0); Monocytes % 7.3 % (1.7-12.7); Neutrophils % 78.2 % (38.7-73.9); Platelet Count 260 T/CUMM (130-400); Red Blood Count 3.93 MC/CUMM (3.8-5.5); Red Cell Distribution Width 17.1 % (9.3-17.3); White Blood Count 8.1 T/CUMM (4-12)
[2020-12-25] MEDS: ATORVASTATIN 40 MG TABLET PO SCH (21:14)
[2020-12-25] MEDS: DOCUSATE SODIUM 100 MG CAPSULE PO SCH (21:14)
[2020-12-26] MEDS: DOCUSATE SODIUM 100 MG CAPSULE PO SCH ×2 (08:24→20:39)
[2020-12-26] MEDS: PANTOPRAZOLE 40 MG TABLET PO SCH (08:24)
[2020-12-26] MEDS: SEVELAMER CARBONATE 800 MG TABLET PO SCH ×3 (08:24→17:24)
[2020-12-26] MEDS: ASPIRIN CHEW 81 MG TABLET PO SCH (08:25)
[2020-12-26 10:37] LABS: Eosinophils # 0.2 10*3/uL (0.0-0.87); Eosinophils % 2.3 % (0.00-10.9); Hematocrit 36.7 VOL% (35.7-47.0); Hemoglobin 11.8 GM/DL (12.0-16.0); Immature Granulocytes % 0.7 %; Immature Granulocytes Absolute 0.05 #; Lymphocytes # 0.9 10*3/uL (1.4-4.0); Lymphocytes % 12.6 % (21.3-54.2); Mean Corpuscular HGB Conc 32.2 GM/DL (32-36); Mean Corpuscular Volume 99.2 FL (87-102); Mean Platelet Volume 9.7 FL (9.6-12.0); Monocytes % 7.1 % (1.7-12.7); Neutrophils % 77.3 % (38.7-73.9); Platelet Count 231 T/CUMM (130-400); Red Cell Distribution Width 17.2 % (9.3-17.3); White Blood Count 6.9 T/CUMM (4-12)
[2020-12-26 11:00] LABS: Alanine Aminotransferase 14 U/L (13-56); Alkaline Phosphatase 99 U/L (45-117); Aspartate Amino Transferase 12 U/L (0-37); Bilirubin,Total < 0.39 MG/DL (0.20-1.00); Blood Urea Nitrogen 110 MG/DL (7-18); Calcium 9.1 MG/DL (8.5-10.1); Carbon Dioxide 27 MMOL/L (21-32); Estimated Glom Filtration Rate 3 ML/MIN; Glucose 103 MG/DL (74-106); Osmolality,Calculated 296.7 MOS/KG (273-304); Potassium 5.3 MMOL/L (3.5-5.1); Sodium 131 MMOL/L (136-145); Total Protein 6.6 G/DL (6.4-8.2)
[2020-12-26] MEDS: ATORVASTATIN 40 MG TABLET PO SCH (20:39)
[2020-12-27 05:30] LABS: Basophils % 0.1 % (0.0-0.8); Eosinophils # 0.2 10*3/uL (0.0-0.87); Eosinophils % 2.6 % (0.00-10.9); Hematocrit 35.7 VOL% (35.7-47.0); Hemoglobin 11.2 GM/DL (12.0-16.0); Immature Granulocytes % 0.8 %; Immature Granulocytes Absolute 0.06 #; Lymphocytes # 0.8 10*3/uL (1.4-4.0); Mean Corpuscular HGB Conc 31.4 GM/DL (32-36); Mean Corpuscular Volume 99.7 FL (87-102); Mean Platelet Volume 10.8 FL (9.6-12.0); Monocytes % 8.7 % (1.7-12.7); Neutrophils % 76.8 % (38.7-73.9); Platelet Count 196 T/CUMM (130-400); Red Blood Count 3.58 MC/CUMM (3.8-5.5); Red Cell Distribution Width 17.2 % (9.3-17.3); White Blood Count 7.2 T/CUMM (4-12)
[2020-12-27 06:00] LABS: Alanine Aminotransferase 16 U/L (13-56); Albumin 2.4 G/DL (3.4-5.0); Alkaline Phosphatase 95 U/L (45-117); Aspartate Amino Transferase 15 U/L (0-37); Bilirubin,Total < 0.39 MG/DL (0.20-1.00); Blood Urea Nitrogen 57 MG/DL (7-18); Calcium 8.7 MG/DL (8.5-10.1); Carbon Dioxide 22 MMOL/L (21-32); Estimated Glom Filtration Rate 5 ML/MIN; Glucose 72 MG/DL (74-106); Osmolality,Calculated 284.1 MOS/KG (273-304); Potassium 5.2 MMOL/L (3.5-5.1); Sodium 135 MMOL/L (136-145); Total Protein 6.1 G/DL (6.4-8.2)
[2020-12-27] MEDS: SEVELAMER CARBONATE 800 MG TABLET PO SCH ×3 (09:10→16:41)
[2020-12-27] MEDS: ASPIRIN CHEW 81 MG TABLET PO SCH (12:55)
[2020-12-27] MEDS: DOCUSATE SODIUM 100 MG CAPSULE PO SCH ×2 (12:55→20:28)
[2020-12-27] MEDS: PANTOPRAZOLE 40 MG TABLET PO SCH (12:55)
[2020-12-27] MEDS: ATORVASTATIN 40 MG TABLET PO SCH (20:28)
[2020-12-28] MEDS: SEVELAMER CARBONATE 800 MG TABLET PO SCH ×3 (09:32→16:21)
[2020-12-28] MEDS: PANTOPRAZOLE 40 MG TABLET PO SCH (09:32)
[2020-12-28] MEDS: DOCUSATE SODIUM 100 MG CAPSULE PO SCH ×2 (09:32→20:22)
[2020-12-28] MEDS: ASPIRIN CHEW 81 MG TABLET PO SCH (09:32)
[2020-12-28] MEDS ORDERED: TUBERCULIN SKIN TEST 0.1 ML SYRINGE INTRADERM ONE (15:00)
[2020-12-28] MEDS: ATORVASTATIN 40 MG TABLET PO SCH (20:22)
[2020-12-29 07:22] VITALS: BP 128/69
[2020-12-29] MEDS: SEVELAMER CARBONATE 800 MG TABLET PO SCH ×2 (08:26→12:37)
[2020-12-29] MEDS: ASPIRIN CHEW 81 MG TABLET PO SCH (08:26)
[2020-12-29] MEDS: DOCUSATE SODIUM 100 MG CAPSULE PO SCH (08:26)
[2020-12-29] MEDS: PANTOPRAZOLE 40 MG TABLET PO SCH (08:26)
== END 2020-12-29 15:09 ==
LOC: N.EDINP 11:12 → N.ED 11:12 → N.EDINP 12-26 04:30 → N.5E 12-26 04:45
PROVIDERS: ADMIT Family Medicine; ATTEND Family Medicine

== ENCOUNTER 2022-01-28 03:03 | Observation (INO) ==
[2022-01-28 04:08] LABS: Basophils # 0.1 10*3/uL (0.0-0.2); Basophils % 0.8 % (0.0-0.8); Eosinophils # 0.2 10*3/uL (0.0-0.87); Eosinophils % 2.5 % (0.00-10.9); Hematocrit 33.6 VOL% (35.7-47.0); Hemoglobin 10.9 GM/DL (12.0-16.0); Immature Granulocytes % 0.5 %; Immature Granulocytes Absolute 0.03 #; Lymphocytes # 0.9 10*3/uL (1.4-4.0); Lymphocytes % 15.7 % (21.3-54.2); Mean Corpuscular HGB Conc 32.4 GM/DL (32-36); Mean Corpuscular Volume 100.6 FL (87-102); Mean Platelet Volume 9.6 FL (9.6-12.0); Monocytes # 0.4 10*3/uL (0.11-0.8); Monocytes % 6.6 % (1.7-12.7); Neutrophils % 73.9 % (38.7-73.9); Platelet Count 271 T/CUMM (130-400); Red Blood Count 3.34 MC/CUMM (3.8-5.5); Red Cell Distribution Width 16.6 % (9.3-17.3); White Blood Count 5.9 T/CUMM (4-12)
[2022-01-28 04:17] LABS: INR 0.9; PT Patient Result 10.1 SECS (10.1-12.1); Partial Thromboplastin Time 21.1 SECS (23.7-32.9)
[2022-01-28 04:37] LABS: Alanine Aminotransferase 16 U/L (13-56); Albumin 3.5 G/DL (3.4-5.0); Alkaline Phosphatase 94 U/L (45-117); Aspartate Amino Transferase 15 U/L (0-37); Bilirubin,Total < 0.39 MG/DL (0.20-1.00); Blood Urea Nitrogen 55 MG/DL (7-18); Calcium 10.3 MG/DL (8.5-10.1); Carbon Dioxide 27 MMOL/L (21-32); Chloride 95 MMOL/L (98-107); Glucose 96 MG/DL (74-106); Osmolality,Calculated 274.8 MOS/KG (273-304); Potassium 4.3 MMOL/L (3.5-5.1); Sodium 130 MMOL/L (136-145); Total Protein 6.8 G/DL (6.4-8.2)
[2022-01-28] MEDS ORDERED: ASPIRIN CHEW 81 MG TABLET PO ONE (05:39)
[2022-01-28] MEDS ORDERED: ACETAMINOPHEN 325 MG TABLET PO PRN (05:39)
[2022-01-28] MEDS ORDERED: GLUCAGON 1 MG VIAL IM PRN (05:39)
[2022-01-28] MEDS ORDERED: DEXTROSE 10% 250 ML BAG IV PRN (05:52)
[2022-01-28] MEDS: NITROGLYCERIN SL 0.4 MG TABLET SL PRN ×3 (06:20→06:30)
[2022-01-28] MEDS: MORPHINE 2 MG/1 ML SYRINGE IV PRN (06:32)
[2022-01-28 07:22] LABS: Cholesterol 139 MG/DL (50-200); HDL Cholesterol 74 MG/DL (40-60); Risk Ratio 1.88; Triglycerides 46 MG/DL (2-150); VLDL Cholesterol 9.2 MG/DL
[2022-01-28] MEDS ORDERED: NITROGLYCERIN SL 0.4 MG TABLET SL PRN (08:34)
[2022-01-28] MEDS: CLOPIDOGREL 75 MG TABLET PO SCH (09:47)
[2022-01-28] MEDS: METOPROLOL TARTRATE 25 MG TABLET PO SCH ×2 (09:47→20:58)
[2022-01-28] MEDS: PANTOPRAZOLE 40 MG TABLET PO SCH (09:48)
[2022-01-28] MEDS: hydrALAZINE 25 MG TABLET PO SCH ×2 (09:48→20:58)
[2022-01-28] MEDS: ISOSORBIDE MONONITRATE 30 MG TABLET PO SCH (09:48)
[2022-01-28] MEDS: ASPIRIN EC 81 MG TABLET PO SCH (09:48)
[2022-01-28] MEDS: HEPARIN 5,000 UNIT/1 ML VIAL SUBCUT SCH ×2 (09:49→21:12)
[2022-01-28] MEDS: SEVELAMER CARBONATE 800 MG TABLET PO SCH ×3 (09:49→20:59)
[2022-01-28] MEDS: RANOLAZINE 500 MG TABLET PO SCH ×2 (09:49→20:59)
[2022-01-28] MEDS: amLODIPine 5 MG TABLET PO SCH (09:49)
[2022-01-28] MEDS: ATORVASTATIN 40 MG TABLET PO SCH (20:58)
[2022-01-29 05:32] LABS: Calcium 9.4 MG/DL (8.5-10.1); Osmolality,Calculated 264.7 MOS/KG (273-304); Potassium 4.5 MMOL/L (3.5-5.1)
[2022-01-29 06:40] LABS: Basophils % 0.8 % (0.0-0.8); Eosinophils # 0.2 10*3/uL (0.0-0.87); Eosinophils % 4.1 % (0.00-10.9); Hematocrit 34.9 VOL% (35.7-47.0); Hemoglobin 11.2 GM/DL (12.0-16.0); Immature Granulocytes % 0.3 %; Immature Granulocytes Absolute 0.01 #; Lymphocytes # 1.1 10*3/uL (1.4-4.0); Lymphocytes % 28.7 % (21.3-54.2); Mean Corpuscular HGB Conc 32.1 GM/DL (32-36); Mean Corpuscular Volume 99.1 FL (87-102); Mean Platelet Volume 9.3 FL (9.6-12.0); Monocytes # 0.4 10*3/uL (0.11-0.8); Monocytes % 8.9 % (1.7-12.7); Neutrophils % 57.2 % (38.7-73.9); Platelet Count 264 T/CUMM (130-400); Red Blood Count 3.52 MC/CUMM (3.8-5.5); Red Cell Distribution Width 16.9 % (9.3-17.3); White Blood Count 3.9 T/CUMM (4-12)
[2022-01-29] MEDS: RANOLAZINE 500 MG TABLET PO SCH ×2 (08:24→20:39)
[2022-01-29] MEDS: ASPIRIN EC 81 MG TABLET PO SCH (08:25)
[2022-01-29] MEDS: ISOSORBIDE MONONITRATE 30 MG TABLET PO SCH (08:25)
[2022-01-29] MEDS: hydrALAZINE 25 MG TABLET PO SCH ×2 (08:25→20:39)
[2022-01-29] MEDS: CLOPIDOGREL 75 MG TABLET PO SCH (08:25)
[2022-01-29] MEDS: METOPROLOL TARTRATE 25 MG TABLET PO SCH ×2 (08:25→20:41)
[2022-01-29] MEDS: amLODIPine 5 MG TABLET PO SCH (08:25)
[2022-01-29] MEDS: HEPARIN 5,000 UNIT/1 ML VIAL SUBCUT SCH ×2 (08:25→20:50)
[2022-01-29] MEDS: SEVELAMER CARBONATE 800 MG TABLET PO SCH ×3 (08:25→20:41)
[2022-01-29] MEDS: PANTOPRAZOLE 40 MG TABLET PO SCH (08:26)
[2022-01-29] MEDS ORDERED: ASPIRIN EC 325 MG TABLET PO SCH (09:00)
[2022-01-29] MEDS: MORPHINE 2 MG/1 ML SYRINGE IV PRN (12:05)
[2022-01-29] MEDS: ONDANSETRON 4 MG/2 ML VIAL IV PRN (20:39)
[2022-01-29] MEDS: ATORVASTATIN 40 MG TABLET PO SCH (20:41)
[2022-01-30] MEDS: METOPROLOL TARTRATE 25 MG TABLET PO SCH ×2 (09:30→20:04)
[2022-01-30] MEDS: amLODIPine 5 MG TABLET PO SCH (09:30)
[2022-01-30] MEDS: HEPARIN 5,000 UNIT/1 ML VIAL SUBCUT SCH ×2 (09:30→20:15)
[2022-01-30] MEDS: ISOSORBIDE MONONITRATE 30 MG TABLET PO SCH (09:30)
[2022-01-30] MEDS: ASPIRIN EC 81 MG TABLET PO SCH (09:30)
[2022-01-30] MEDS: hydrALAZINE 25 MG TABLET PO SCH ×2 (09:30→20:05)
[2022-01-30] MEDS: PANTOPRAZOLE 40 MG TABLET PO SCH ×2 (09:31→20:05)
[2022-01-30] MEDS: RANOLAZINE 500 MG TABLET PO SCH ×2 (09:31→20:04)
[2022-01-30] MEDS: CLOPIDOGREL 75 MG TABLET PO SCH (09:31)
[2022-01-30] MEDS: SEVELAMER CARBONATE 800 MG TABLET PO SCH ×3 (09:31→20:05)
[2022-01-30] MEDS ORDERED: traMADol 50 MG TABLET PO PRN (15:11)
[2022-01-30] MEDS: ATORVASTATIN 40 MG TABLET PO SCH (20:05)
[2022-01-30] MEDS: ONDANSETRON 4 MG/2 ML VIAL IV PRN (20:10)
[2022-01-31 08:08] VITALS: BP 122/78
[2022-01-31 09:10] LABS: Basophils % 0.8 % (0.0-0.8); Eosinophils # 0.1 10*3/uL (0.0-0.87); Eosinophils % 3.3 % (0.00-10.9); Hematocrit 34.1 VOL% (35.7-47.0); Hemoglobin 11.2 GM/DL (12.0-16.0); Immature Granulocytes % 0.3 %; Immature Granulocytes Absolute 0.01 #; Lymphocytes # 0.9 10*3/uL (1.4-4.0); Lymphocytes % 25.5 % (21.3-54.2); Mean Corpuscular HGB Conc 32.8 GM/DL (32-36); Mean Platelet Volume 9.4 FL (9.6-12.0); Monocytes # 0.3 10*3/uL (0.11-0.8); Neutrophils % 62.1 % (38.7-73.9); Platelet Count 217 T/CUMM (130-400); Red Blood Count 3.48 MC/CUMM (3.8-5.5); Red Cell Distribution Width 16.5 % (9.3-17.3); White Blood Count 3.6 T/CUMM (4-12)
[2022-01-31] MEDS: SEVELAMER CARBONATE 800 MG TABLET PO SCH (09:43)
[2022-01-31] MEDS: METOPROLOL TARTRATE 25 MG TABLET PO SCH (09:43)
[2022-01-31] MEDS: CLOPIDOGREL 75 MG TABLET PO SCH (09:43)
[2022-01-31] MEDS: amLODIPine 5 MG TABLET PO SCH (09:43)
[2022-01-31] MEDS: PANTOPRAZOLE 40 MG TABLET PO SCH (09:43)
[2022-01-31] MEDS: hydrALAZINE 25 MG TABLET PO SCH (09:43)
[2022-01-31] MEDS: ASPIRIN EC 81 MG TABLET PO SCH (09:43)
[2022-01-31] MEDS: ISOSORBIDE MONONITRATE 30 MG TABLET PO SCH (09:43)
[2022-01-31] MEDS: RANOLAZINE 500 MG TABLET PO SCH (09:43)
[2022-01-31] MEDS: HEPARIN 5,000 UNIT/1 ML VIAL SUBCUT SCH (09:43)
[2022-01-31 10:02] LABS: Alanine Aminotransferase 16 U/L (13-56); Albumin 3.3 G/DL (3.4-5.0); Alkaline Phosphatase 93 U/L (45-117); Aspartate Amino Transferase 13 U/L (0-37); Bilirubin,Direct < 0.100 MG/DL (0.0-0.20); Bilirubin,Indirect 0.3 MG/DL (0.0-1.0); Bilirubin,Total < 0.39 MG/DL (0.20-1.00); Blood Urea Nitrogen 27 MG/DL (7-18); Carbon Dioxide 27 MMOL/L (21-32); Chloride 95 MMOL/L (98-107); Glucose 101 MG/DL (74-106); Osmolality,Calculated 261.1 MOS/KG (273-304); Potassium 4.2 MMOL/L (3.5-5.1); Sodium 128 MMOL/L (136-145); Total Protein 6.9 G/DL (6.4-8.2)
== END 2022-01-31 11:43 | disposition home health service (06) ==
LOC: N.EDINP 03:03 → N.ED 03:03 → N.EDINP 09:02 → N.2W 09:15
PROVIDERS: ADMIT Family Medicine; ATTEND Family Medicine

== ENCOUNTER 2022-02-02 14:52 | Inpatient (IN) ==
[2022-02-02 15:15] LABS: Basophils % 0.4 % (0.0-0.8); Eosinophils # 0.1 10*3/uL (0.0-0.87); Eosinophils % 2.3 % (0.00-10.9); Hematocrit 29.7 VOL% (35.7-47.0); Immature Granulocytes % 0.4 %; Immature Granulocytes Absolute 0.02 #; Lymphocytes % 18.5 % (21.3-54.2); Mean Corpuscular HGB Conc 33.7 GM/DL (32-36); Mean Corpuscular Volume 95.8 FL (87-102); Mean Platelet Volume 9.3 FL (9.6-12.0); Monocytes # 0.4 10*3/uL (0.11-0.8); Monocytes % 8.5 % (1.7-12.7); Neutrophils % 69.9 % (38.7-73.9); Platelet Count 194 T/CUMM (130-400); Red Cell Distribution Width 16.4 % (9.3-17.3); White Blood Count 5.2 T/CUMM (4-12)
[2022-02-02 15:31] LABS: Alanine Aminotransferase 16 U/L (13-56); Alkaline Phosphatase 81 U/L (45-117); Aspartate Amino Transferase 15 U/L (0-37); Bilirubin,Total < 0.39 MG/DL (0.20-1.00); Blood Urea Nitrogen 42 MG/DL (7-18); Calcium 8.7 MG/DL (8.5-10.1); Carbon Dioxide 22 MMOL/L (21-32); Chloride 93 MMOL/L (98-107); Glucose 138 MG/DL (74-106); Osmolality,Calculated 263.5 MOS/KG (273-304); Potassium 4.5 MMOL/L (3.5-5.1); Sodium 125 MMOL/L (136-145); Total Protein 6.5 G/DL (6.4-8.2)
[2022-02-02] MEDS ORDERED: ONDANSETRON 4 MG/2 ML VIAL IV PRN (17:25)
[2022-02-02] MEDS ORDERED: NITROGLYCERIN SL 0.4 MG TABLET SL PRN (17:27)
[2022-02-02] MEDS: hydrALAZINE 25 MG TABLET PO SCH (22:10)
[2022-02-02] MEDS: RANOLAZINE 500 MG TABLET PO SCH (22:10)
[2022-02-02] MEDS: ATORVASTATIN 40 MG TABLET PO SCH (22:10)
[2022-02-02] MEDS: carBAMazepine 200 MG TABLET PO SCH (22:10)
[2022-02-02] MEDS: DOCUSATE SODIUM 100 MG CAPSULE PO SCH (22:11)
[2022-02-03] MEDS: ISOSORBIDE MONONITRATE 30 MG TABLET PO SCH (08:09)
[2022-02-03] MEDS: RANOLAZINE 500 MG TABLET PO SCH ×2 (08:09→20:49)
[2022-02-03] MEDS: CLOPIDOGREL 75 MG TABLET PO SCH (08:10)
[2022-02-03] MEDS: DOCUSATE SODIUM 100 MG CAPSULE PO SCH ×2 (08:10→20:49)
[2022-02-03] MEDS: hydrALAZINE 25 MG TABLET PO SCH ×2 (08:10→20:49)
[2022-02-03] MEDS: carBAMazepine 200 MG TABLET PO SCH ×2 (08:15→20:49)
[2022-02-03] MEDS ORDERED: hydrALAZINE 20 MG/1 ML VIAL IV PRN (08:25)
[2022-02-03] MEDS ORDERED: PANTOPRAZOLE 40 MG TABLET PO SCH (09:00)
[2022-02-03] MEDS ORDERED: amLODIPine 5 MG TABLET PO SCH (09:00)
[2022-02-03 09:16] LABS: Basophils % 0.6 % (0.0-0.8); Eosinophils # 0.2 10*3/uL (0.0-0.87); Eosinophils % 3.1 % (0.00-10.9); Hematocrit 29.6 VOL% (35.7-47.0); Immature Granulocytes % 0.6 %; Immature Granulocytes Absolute 0.03 #; Lymphocytes # 1.1 10*3/uL (1.4-4.0); Lymphocytes % 22.6 % (21.3-54.2); Mean Corpuscular HGB Conc 33.8 GM/DL (32-36); Mean Corpuscular Volume 96.4 FL (87-102); Mean Platelet Volume 9.9 FL (9.6-12.0); Monocytes # 0.4 10*3/uL (0.11-0.8); Monocytes % 7.9 % (1.7-12.7); Neutrophils % 65.2 % (38.7-73.9); Platelet Count 197 T/CUMM (130-400); Red Blood Count 3.07 MC/CUMM (3.8-5.5); Red Cell Distribution Width 16.2 % (9.3-17.3); White Blood Count 4.9 T/CUMM (4-12)
[2022-02-03 09:34] LABS: Bilirubin,Total 0.4 MG/DL (0.20-1.00); Calcium 8.8 MG/DL (8.5-10.1); Osmolality,Calculated 268.2 MOS/KG (273-304); Potassium 4.7 MMOL/L (3.5-5.1); Total Protein 6.6 G/DL (6.4-8.2)
[2022-02-03] MEDS: SEVELAMER CARBONATE 800 MG TABLET PO SCH ×2 (14:10→20:49)
[2022-02-03] MEDS: ATORVASTATIN 40 MG TABLET PO SCH (20:49)
[2022-02-03] MEDS: METOPROLOL TARTRATE 25 MG TABLET PO SCH (20:49)
[2022-02-03] MEDS: PANTOPRAZOLE 40 MG TABLET PO SCH (20:49)
[2022-02-04 05:26] LABS: Basophils % 0.3 % (0.0-0.8); Eosinophils # 0.1 10*3/uL (0.0-0.87); Eosinophils % 2.1 % (0.00-10.9); Hemoglobin 10.2 GM/DL (12.0-16.0); Immature Granulocytes % 0.3 %; Immature Granulocytes Absolute 0.02 #; Lymphocytes # 1.1 10*3/uL (1.4-4.0); Lymphocytes % 18.4 % (21.3-54.2); Mean Corpuscular Volume 94.3 FL (87-102); Monocytes # 0.5 10*3/uL (0.11-0.8); Monocytes % 7.9 % (1.7-12.7); Platelet Count 216 T/CUMM (130-400); Red Blood Count 3.18 MC/CUMM (3.8-5.5); Red Cell Distribution Width 15.8 % (9.3-17.3); White Blood Count 5.8 T/CUMM (4-12)
[2022-02-04 05:49] LABS: Alanine Aminotransferase 18 U/L (13-56); Albumin 2.9 G/DL (3.4-5.0); Alkaline Phosphatase 82 U/L (45-117); Aspartate Amino Transferase 18 U/L (0-37); Bilirubin,Total < 0.39 MG/DL (0.20-1.00); Blood Urea Nitrogen 47 MG/DL (7-18); Calcium 8.9 MG/DL (8.5-10.1); Carbon Dioxide 21 MMOL/L (21-32); Chloride 90 MMOL/L (98-107); Glucose 100 MG/DL (74-106); Osmolality,Calculated 256.9 MOS/KG (273-304); Potassium 4.9 MMOL/L (3.5-5.1); Sodium 122 MMOL/L (136-145); Total Protein 6.5 G/DL (6.4-8.2)
[2022-02-04] MEDS: CLOPIDOGREL 75 MG TABLET PO SCH (08:48)
[2022-02-04] MEDS: SEVELAMER CARBONATE 800 MG TABLET PO SCH ×3 (08:48→20:49)
[2022-02-04] MEDS: DOCUSATE SODIUM 100 MG CAPSULE PO SCH ×2 (08:48→20:49)
[2022-02-04] MEDS: carBAMazepine 200 MG TABLET PO SCH ×2 (08:48→20:49)
[2022-02-04] MEDS: PANTOPRAZOLE 40 MG TABLET PO SCH ×2 (08:48→20:50)
[2022-02-04] MEDS: hydrALAZINE 25 MG TABLET PO SCH ×2 (13:37→20:49)
[2022-02-04] MEDS: RANOLAZINE 500 MG TABLET PO SCH ×2 (13:37→20:49)
[2022-02-04] MEDS: METOPROLOL TARTRATE 25 MG TABLET PO SCH ×2 (13:37→20:50)
[2022-02-04] MEDS: amLODIPine 10 MG TABLET PO SCH (13:37)
[2022-02-04] MEDS: ISOSORBIDE MONONITRATE 30 MG TABLET PO SCH (13:37)
[2022-02-04] MEDS: ATORVASTATIN 40 MG TABLET PO SCH (20:50)
[2022-02-05 06:02] LABS: Basophils % 0.7 % (0.0-0.8); Eosinophils # 0.1 10*3/uL (0.0-0.87); Eosinophils % 3.3 % (0.00-10.9); Hematocrit 32.8 VOL% (35.7-47.0); Immature Granulocytes % 0.5 %; Immature Granulocytes Absolute 0.02 #; Lymphocytes # 0.8 10*3/uL (1.4-4.0); Lymphocytes % 18.4 % (21.3-54.2); Mean Corpuscular HGB Conc 33.5 GM/DL (32-36); Mean Corpuscular Volume 95.3 FL (87-102); Mean Platelet Volume 10.3 FL (9.6-12.0); Monocytes # 0.5 10*3/uL (0.11-0.8); Monocytes % 12.1 % (1.7-12.7); Platelet Count 208 T/CUMM (130-400); Red Blood Count 3.44 MC/CUMM (3.8-5.5); Red Cell Distribution Width 16.3 % (9.3-17.3); White Blood Count 4.3 T/CUMM (4-12)
[2022-02-05 06:17] LABS: Calcium 8.7 MG/DL (8.5-10.1); Osmolality,Calculated 261.9 MOS/KG (273-304)
[2022-02-05] MEDS ORDERED: DIAZEPAM 5 MG TABLET PO ONE (07:49)
[2022-02-05] MEDS ORDERED: diphenhydrAMINE CAP 25 MG CAPSULE PO ONE (07:49)
[2022-02-05] MEDS: DOCUSATE SODIUM 100 MG CAPSULE PO SCH ×2 (08:00→20:58)
[2022-02-05] MEDS: hydrALAZINE 25 MG TABLET PO SCH ×4 (08:00→20:58)
[2022-02-05] MEDS: ISOSORBIDE MONONITRATE 30 MG TABLET PO SCH (08:00)
[2022-02-05] MEDS: SEVELAMER CARBONATE 800 MG TABLET PO SCH ×3 (08:01→20:59)
[2022-02-05] MEDS: carBAMazepine 200 MG TABLET PO SCH ×2 (08:01→20:59)
[2022-02-05] MEDS: CLOPIDOGREL 75 MG TABLET PO SCH (08:01)
[2022-02-05] MEDS: PANTOPRAZOLE 40 MG TABLET PO SCH ×3 (08:01→20:59)
[2022-02-05] MEDS: RANOLAZINE 500 MG TABLET PO SCH ×2 (08:01→20:59)
[2022-02-05] MEDS: METOPROLOL TARTRATE 25 MG TABLET PO SCH ×2 (08:01→20:58)
[2022-02-05] MEDS: amLODIPine 10 MG TABLET PO SCH (08:01)
[2022-02-05] MEDS ORDERED: HEPARIN/NACL 0.9% 2 UNITS/ML 2,000 UNIT/1,000 ML BAG IV ONE (08:28)
[2022-02-05] MEDS ORDERED: LIDOCAINE 1%/EPI INJ 20 ML VIAL ONE (08:28)
[2022-02-05] MEDS ORDERED: MIDAZOLAM 2 MG/2 ML VIAL ONE (09:00)
[2022-02-05] MEDS ORDERED: fentaNYL 100 MCG/2 ML VIAL ONE (09:01)
[2022-02-05] MEDS ORDERED: TIROFIBAN 5,000 MCG/100 ML PREMIX IV ONE (09:19)
[2022-02-05] MEDS ORDERED: ENOXAPARIN 60 MG/0.6 ML SYRINGE ONE (09:23)
[2022-02-05] MEDS ORDERED: ceFAZolin 1,000 MG VIAL ONE (09:50)
[2022-02-05] MEDS ORDERED: CLOPIDOGREL 300 MG TABLET ONE (09:50)
[2022-02-05] MEDS ORDERED: ASPIRIN 325 MG TABLET ONE (09:50)
[2022-02-05] MEDS ORDERED: ACETAMINOPHEN 325 MG TABLET PO PRN (10:18)
[2022-02-05] MEDS: ATORVASTATIN 40 MG TABLET PO SCH (20:59)
[2022-02-06 02:16] LABS: Basophils # 0.1 10*3/uL (0.0-0.2); Basophils % 1.1 % (0.0-0.8); Eosinophils # 0.2 10*3/uL (0.0-0.87); Eosinophils % 3.6 % (0.00-10.9); Hematocrit 31.1 VOL% (35.7-47.0); Hemoglobin 10.5 GM/DL (12.0-16.0); Immature Granulocytes % 0.2 %; Immature Granulocytes Absolute 0.01 #; Lymphocytes % 18.9 % (21.3-54.2); Mean Corpuscular HGB Conc 33.8 GM/DL (32-36); Mean Corpuscular Volume 95.4 FL (87-102); Mean Platelet Volume 9.8 FL (9.6-12.0); Monocytes # 0.5 10*3/uL (0.11-0.8); Monocytes % 9.2 % (1.7-12.7); Platelet Count 209 T/CUMM (130-400); Red Blood Count 3.26 MC/CUMM (3.8-5.5); Red Cell Distribution Width 16.1 % (9.3-17.3); White Blood Count 5.3 T/CUMM (4-12)
[2022-02-06 02:32] LABS: Calcium 8.4 MG/DL (8.5-10.1); Osmolality,Calculated 256.5 MOS/KG (273-304); Potassium 4.7 MMOL/L (3.5-5.1)
[2022-02-06] MEDS: ACETAMINOPHEN 325 MG TABLET PO PRN ×2 (07:22→14:23)
[2022-02-06] MEDS: carBAMazepine 200 MG TABLET PO SCH ×2 (11:51→22:02)
[2022-02-06] MEDS: METOPROLOL TARTRATE 25 MG TABLET PO SCH ×2 (11:51→22:03)
[2022-02-06] MEDS: amLODIPine 10 MG TABLET PO SCH (11:51)
[2022-02-06] MEDS: DOCUSATE SODIUM 100 MG CAPSULE PO SCH ×2 (11:52→22:02)
[2022-02-06] MEDS: CLOPIDOGREL 75 MG TABLET PO SCH (11:52)
[2022-02-06] MEDS: PANTOPRAZOLE 40 MG TABLET PO SCH ×4 (11:52→22:03)
[2022-02-06] MEDS: RANOLAZINE 500 MG TABLET PO SCH ×2 (11:52→22:02)
[2022-02-06] MEDS: ASPIRIN EC 81 MG TABLET PO SCH (11:52)
[2022-02-06] MEDS: SEVELAMER CARBONATE 800 MG TABLET PO SCH ×3 (11:52→22:02)
[2022-02-06] MEDS: ISOSORBIDE MONONITRATE 30 MG TABLET PO SCH (11:52)
[2022-02-06] MEDS: ATORVASTATIN 40 MG TABLET PO SCH (22:03)
[2022-02-07 04:18] LABS: Basophils # 0.1 10*3/uL (0.0-0.2); Basophils % 1.3 % (0.0-0.8); Eosinophils # 0.2 10*3/uL (0.0-0.87); Eosinophils % 3.3 % (0.00-10.9); Hematocrit 30.6 VOL% (35.7-47.0); Hemoglobin 10.1 GM/DL (12.0-16.0); Immature Granulocytes % 0.4 %; Immature Granulocytes Absolute 0.02 #; Lymphocytes % 21.7 % (21.3-54.2); Mean Corpuscular Volume 96.8 FL (87-102); Monocytes # 0.6 10*3/uL (0.11-0.8); Monocytes % 12.1 % (1.7-12.7); Neutrophils % 61.2 % (38.7-73.9); Platelet Count 211 T/CUMM (130-400); Red Blood Count 3.16 MC/CUMM (3.8-5.5); Red Cell Distribution Width 16.3 % (9.3-17.3); White Blood Count 4.8 T/CUMM (4-12)
[2022-02-07 04:42] LABS: Calcium 8.6 MG/DL (8.5-10.1); Osmolality,Calculated 264.7 MOS/KG (273-304); Potassium 4.8 MMOL/L (3.5-5.1)
[2022-02-07] MEDS: DOCUSATE SODIUM 100 MG CAPSULE PO SCH (09:00)
[2022-02-07] MEDS: METOPROLOL TARTRATE 25 MG TABLET PO SCH (09:00)
[2022-02-07] MEDS: amLODIPine 10 MG TABLET PO SCH (09:00)
[2022-02-07] MEDS: RANOLAZINE 500 MG TABLET PO SCH (09:00)
[2022-02-07] MEDS: carBAMazepine 200 MG TABLET PO SCH (09:00)
[2022-02-07] MEDS: ASPIRIN EC 81 MG TABLET PO SCH (09:00)
[2022-02-07] MEDS: SEVELAMER CARBONATE 800 MG TABLET PO SCH (09:00)
[2022-02-07] MEDS: CLOPIDOGREL 75 MG TABLET PO SCH (09:00)
[2022-02-07] MEDS: PANTOPRAZOLE 40 MG TABLET PO SCH ×2 (09:00)
[2022-02-07] MEDS: ISOSORBIDE MONONITRATE 30 MG TABLET PO SCH (09:00)
[2022-02-07] MEDS: ACETAMINOPHEN 325 MG TABLET PO PRN (09:06)
[2022-02-07 12:41] VITALS: BP 103/53
== END 2022-02-07 15:12 | disposition home health service (06) | DRG 246 ==
LOC: N.TELEN 14:52 → N.ED 14:52 → N.TELEN 20:23
PROVIDERS: ADMIT Family Medicine; ATTEND Family Medicine

== ENCOUNTER 2022-02-10 23:02 | Inpatient (IN) ==
[2022-02-10] MEDS ORDERED: ONDANSETRON 4 MG/2 ML VIAL IV STA (23:34)
[2022-02-10] MEDS ORDERED: ASPIRIN 325 MG TABLET PO STA (23:34)
[2022-02-10] MEDS ORDERED: NITROGLYCERIN 2% OINT 1 INCH/GM PACK TOP STA (23:34)
[2022-02-10] MEDS ORDERED: ALUM/MAG/SIMETH/LIDO VISC 1:1 30 ML BOTTLE PO STA (23:34)
[2022-02-10] MEDS ORDERED: ATROPINE 1 MG/10 ML SYRINGE IV STA (23:35)
[2022-02-10 23:40] LABS: Basophils # 0.1 10*3/uL (0.0-0.2); Basophils % 1.6 % (0.0-0.8); Eosinophils # 0.2 10*3/uL (0.0-0.87); Eosinophils % 4.3 % (0.00-10.9); Hematocrit 29.5 VOL% (35.7-47.0); Hemoglobin 9.7 GM/DL (12.0-16.0); Immature Granulocytes % 0.2 %; Immature Granulocytes Absolute 0.01 #; Lymphocytes # 1.3 10*3/uL (1.4-4.0); Lymphocytes % 29.4 % (21.3-54.2); Mean Corpuscular HGB Conc 32.9 GM/DL (32-36); Mean Corpuscular Volume 97.4 FL (87-102); Monocytes # 0.4 10*3/uL (0.11-0.8); Neutrophils % 54.5 % (38.7-73.9); Platelet Count 272 T/CUMM (130-400); Red Blood Count 3.03 MC/CUMM (3.8-5.5); Red Cell Distribution Width 16.2 % (9.3-17.3); White Blood Count 4.4 T/CUMM (4-12)
[2022-02-10 23:50] LABS: INR 0.9; PT Patient Result 9.8 SECS (10.1-12.1)
[2022-02-11 00:15] LABS: Alanine Aminotransferase < 9 U/L (13-56); Albumin 2.9 G/DL (3.4-5.0); Alkaline Phosphatase 86 U/L (45-117); Aspartate Amino Transferase 14 U/L (0-37); Bilirubin,Total < 0.39 MG/DL (0.20-1.00); Blood Urea Nitrogen 51 MG/DL (7-18); Calcium 9.1 MG/DL (8.5-10.1); Carbon Dioxide 21 MMOL/L (21-32); Chloride 97 MMOL/L (98-107); Glucose 102 MG/DL (74-106); Osmolality,Calculated 273.8 MOS/KG (273-304); Potassium 5.2 MMOL/L (3.5-5.1); Sodium 130 MMOL/L (136-145); Total Protein 6.4 G/DL (6.4-8.2)
[2022-02-11] MEDS ORDERED: NITROGLYCERIN SL 0.4 MG TABLET SL PRN (02:32)
[2022-02-11] MEDS ORDERED: ACETAMINOPHEN 325 MG TABLET PO PRN (02:32)
[2022-02-11] MEDS ORDERED: ALBUTEROL 2.5 MG/3 ML NEB RESP TX PRN (02:40)
[2022-02-11 02:54] LABS: Basophils # 0.1 10*3/uL (0.0-0.2); Basophils % 1.2 % (0.0-0.8); Eosinophils # 0.2 10*3/uL (0.0-0.87); Eosinophils % 3.6 % (0.00-10.9); Hematocrit 26.7 VOL% (35.7-47.0); Hemoglobin 8.9 GM/DL (12.0-16.0); Immature Granulocytes % 0.2 %; Immature Granulocytes Absolute 0.01 #; Lymphocytes # 1.1 10*3/uL (1.4-4.0); Lymphocytes % 21.9 % (21.3-54.2); Mean Corpuscular HGB Conc 33.3 GM/DL (32-36); Mean Corpuscular Volume 96.7 FL (87-102); Mean Platelet Volume 9.3 FL (9.6-12.0); Monocytes # 0.4 10*3/uL (0.11-0.8); Monocytes % 8.3 % (1.7-12.7); Neutrophils % 64.8 % (38.7-73.9); Platelet Count 218 T/CUMM (130-400); Red Blood Count 2.76 MC/CUMM (3.8-5.5); Red Cell Distribution Width 16.3 % (9.3-17.3)
[2022-02-11 03:18] LABS: Alanine Aminotransferase < 9 U/L (13-56); Albumin 2.5 G/DL (3.4-5.0); Alkaline Phosphatase 77 U/L (45-117); Aspartate Amino Transferase 12 U/L (0-37); Bilirubin,Total < 0.39 MG/DL (0.20-1.00); Blood Urea Nitrogen 52 MG/DL (7-18); Calcium 8.8 MG/DL (8.5-10.1); Carbon Dioxide 21 MMOL/L (21-32); Chloride 97 MMOL/L (98-107); Cholesterol 142 MG/DL (50-200); Glucose 101 MG/DL (74-106); HDL Cholesterol 76 MG/DL (40-60); Osmolality,Calculated 270.1 MOS/KG (273-304); Potassium 5.5 MMOL/L (3.5-5.1); Risk Ratio 1.87; Sodium 128 MMOL/L (136-145); Total Protein 6.2 G/DL (6.4-8.2); Triglycerides 63 MG/DL (2-150); VLDL Cholesterol 12.6 MG/DL
[2022-02-11] MEDS: ACETAMINOPHEN 325 MG TABLET PO PRN (05:31)
[2022-02-11] MEDS: ASPIRIN EC 81 MG TABLET PO SCH (08:13)
[2022-02-11] MEDS: SEVELAMER CARBONATE 800 MG TABLET PO SCH ×3 (08:13→17:23)
[2022-02-11] MEDS: carBAMazepine 200 MG TABLET PO SCH ×2 (08:13→21:15)
[2022-02-11] MEDS: RANOLAZINE 500 MG TABLET PO SCH ×2 (08:13→21:15)
[2022-02-11] MEDS: ISOSORBIDE MONONITRATE 30 MG TABLET PO SCH (08:13)
[2022-02-11] MEDS: DOCUSATE SODIUM 100 MG CAPSULE PO SCH ×2 (08:13→21:15)
[2022-02-11] MEDS: PANTOPRAZOLE 40 MG TABLET PO SCH (08:14)
[2022-02-11] MEDS: CLOPIDOGREL 75 MG TABLET PO SCH (08:14)
[2022-02-11] MEDS: MORPHINE 2 MG/1 ML SYRINGE IV PRN (08:19)
[2022-02-11] MEDS ORDERED: PROMETHAZINE INJ 12.5 MG in SODIUM CHLORIDE 0.9% 50 ML IV PRN (08:34)
[2022-02-11] MEDS ORDERED: PANTOPRAZOLE 40 MG TABLET PO SCH (09:00)
[2022-02-11] MEDS: ONDANSETRON 4 MG/2 ML VIAL IV PRN (09:49)
[2022-02-11] MEDS: cefTRIAXone 1,000 MG in SODIUM CHLORIDE 0.9% 100 ML IV SCH (12:18)
[2022-02-11] MEDS: ATORVASTATIN 40 MG TABLET PO SCH (21:15)
[2022-02-12] MEDS: ACETAMINOPHEN 325 MG TABLET PO PRN (05:45)
[2022-02-12 05:50] LABS: Basophils # 0.1 10*3/uL (0.0-0.2); Basophils % 1.2 % (0.0-0.8); Eosinophils # 0.2 10*3/uL (0.0-0.87); Eosinophils % 4.7 % (0.00-10.9); Hematocrit 29.9 VOL% (35.7-47.0); Hemoglobin 9.6 GM/DL (12.0-16.0); Immature Granulocytes % 0.5 %; Immature Granulocytes Absolute 0.02 #; Lymphocytes # 0.8 10*3/uL (1.4-4.0); Mean Corpuscular HGB Conc 32.1 GM/DL (32-36); Mean Corpuscular Volume 98.4 FL (87-102); Mean Platelet Volume 9.5 FL (9.6-12.0); Monocytes # 0.3 10*3/uL (0.11-0.8); Monocytes % 8.4 % (1.7-12.7); Neutrophils % 66.2 % (38.7-73.9); Platelet Count 239 T/CUMM (130-400); Red Blood Count 3.04 MC/CUMM (3.8-5.5); Red Cell Distribution Width 16.2 % (9.3-17.3); White Blood Count 4.1 T/CUMM (4-12)
[2022-02-12 06:27] LABS: Alanine Aminotransferase 10 U/L (13-56); Albumin 2.8 G/DL (3.4-5.0); Alkaline Phosphatase 89 U/L (45-117); Aspartate Amino Transferase 14 U/L (0-37); Bilirubin,Direct < 0.100 MG/DL (0.0-0.20); Bilirubin,Indirect 0.3 MG/DL (0.0-1.0); Bilirubin,Total < 0.39 MG/DL (0.20-1.00); Blood Urea Nitrogen 23 MG/DL (7-18); Calcium 9.1 MG/DL (8.5-10.1); Carbon Dioxide 27 MMOL/L (21-32); Chloride 104 MMOL/L (98-107); Glucose 84 MG/DL (74-106); Osmolality,Calculated 272.1 MOS/KG (273-304); Potassium 4.6 MMOL/L (3.5-5.1); Sodium 135 MMOL/L (136-145); Total Protein 6.8 G/DL (6.4-8.2)
[2022-02-12] MEDS: SEVELAMER CARBONATE 800 MG TABLET PO SCH ×3 (07:53→17:52)
[2022-02-12] MEDS: RANOLAZINE 500 MG TABLET PO SCH ×2 (09:35→20:07)
[2022-02-12] MEDS: ASPIRIN EC 81 MG TABLET PO SCH (09:36)
[2022-02-12] MEDS: ISOSORBIDE MONONITRATE 30 MG TABLET PO SCH (09:36)
[2022-02-12] MEDS: carBAMazepine 200 MG TABLET PO SCH ×2 (09:36→20:07)
[2022-02-12] MEDS: PANTOPRAZOLE 40 MG TABLET PO SCH (09:36)
[2022-02-12] MEDS: CLOPIDOGREL 75 MG TABLET PO SCH (09:36)
[2022-02-12] MEDS: DOCUSATE SODIUM 100 MG CAPSULE PO SCH ×2 (09:36→20:07)
[2022-02-12] MEDS: cefTRIAXone 1,000 MG in SODIUM CHLORIDE 0.9% 100 ML IV SCH (12:11)
[2022-02-12] MEDS: ONDANSETRON 4 MG/2 ML VIAL IV PRN (19:55)
[2022-02-12] MEDS: MORPHINE 2 MG/1 ML SYRINGE IV PRN (19:57)
[2022-02-12] MEDS: ATORVASTATIN 40 MG TABLET PO SCH (20:07)
[2022-02-13 08:48] LABS: Basophils # 0.1 10*3/uL (0.0-0.2); Basophils % 1.1 % (0.0-0.8); Eosinophils # 0.2 10*3/uL (0.0-0.87); Eosinophils % 3.9 % (0.00-10.9); Hematocrit 28.5 VOL% (35.7-47.0); Hemoglobin 9.1 GM/DL (12.0-16.0); Immature Granulocytes % 0.5 %; Immature Granulocytes Absolute 0.02 #; Lymphocytes # 0.9 10*3/uL (1.4-4.0); Lymphocytes % 20.4 % (21.3-54.2); Mean Corpuscular HGB Conc 31.9 GM/DL (32-36); Mean Corpuscular Volume 100.4 FL (87-102); Mean Platelet Volume 9.5 FL (9.6-12.0); Monocytes # 0.4 10*3/uL (0.11-0.8); Monocytes % 8.2 % (1.7-12.7); Neutrophils % 65.9 % (38.7-73.9); Platelet Count 233 T/CUMM (130-400); Red Blood Count 2.84 MC/CUMM (3.8-5.5); Red Cell Distribution Width 16.3 % (9.3-17.3); White Blood Count 4.4 T/CUMM (4-12)
[2022-02-13] MEDS: carBAMazepine 200 MG TABLET PO SCH ×2 (08:50→22:13)
[2022-02-13] MEDS: ASPIRIN EC 81 MG TABLET PO SCH (08:50)
[2022-02-13] MEDS: ISOSORBIDE MONONITRATE 30 MG TABLET PO SCH (08:50)
[2022-02-13] MEDS: RANOLAZINE 500 MG TABLET PO SCH ×2 (08:50→22:13)
[2022-02-13] MEDS: SEVELAMER CARBONATE 800 MG TABLET PO SCH ×3 (08:50→16:46)
[2022-02-13] MEDS: DOCUSATE SODIUM 100 MG CAPSULE PO SCH ×2 (08:50→22:14)
[2022-02-13] MEDS: PANTOPRAZOLE 40 MG TABLET PO SCH (08:51)
[2022-02-13] MEDS: CLOPIDOGREL 75 MG TABLET PO SCH (08:51)
[2022-02-13 09:01] LABS: Calcium 8.9 MG/DL (8.5-10.1); Osmolality,Calculated 279.8 MOS/KG (273-304); Potassium 4.5 MMOL/L (3.5-5.1)
[2022-02-13] MEDS ORDERED: METOPROLOL TARTRATE 25 MG TABLET PO SCH (10:00)
[2022-02-13] MEDS: cefTRIAXone 1,000 MG in SODIUM CHLORIDE 0.9% 100 ML IV SCH (11:44)
[2022-02-13] MEDS: amLODIPine 10 MG TABLET PO SCH (11:44)
[2022-02-13] MEDS: MORPHINE 2 MG/1 ML SYRINGE IV PRN (19:18)
[2022-02-13] MEDS: ATORVASTATIN 40 MG TABLET PO SCH (22:13)
[2022-02-14] MEDS: ONDANSETRON 4 MG/2 ML VIAL IV PRN ×2 (02:30→10:40)
[2022-02-14 05:31] LABS: Basophils # 0.1 10*3/uL (0.0-0.2); Basophils % 1.2 % (0.0-0.8); Eosinophils # 0.2 10*3/uL (0.0-0.87); Eosinophils % 4.4 % (0.00-10.9); Immature Granulocytes % 0.4 %; Immature Granulocytes Absolute 0.02 #; Lymphocytes # 0.9 10*3/uL (1.4-4.0); Lymphocytes % 18.9 % (21.3-54.2); Mean Corpuscular HGB Conc 32.3 GM/DL (32-36); Mean Corpuscular Volume 98.7 FL (87-102); Mean Platelet Volume 9.6 FL (9.6-12.0); Monocytes # 0.5 10*3/uL (0.11-0.8); Neutrophils % 64.1 % (38.7-73.9); Platelet Count 236 T/CUMM (130-400); Red Blood Count 3.14 MC/CUMM (3.8-5.5); Red Cell Distribution Width 16.2 % (9.3-17.3); White Blood Count 4.8 T/CUMM (4-12)
[2022-02-14 05:49] LABS: Calcium 8.9 MG/DL (8.5-10.1); Potassium 4.2 MMOL/L (3.5-5.1)
[2022-02-14] MEDS: ACETAMINOPHEN 325 MG TABLET PO PRN (07:26)
[2022-02-14] MEDS: CLOPIDOGREL 75 MG TABLET PO SCH (09:00)
[2022-02-14] MEDS: amLODIPine 10 MG TABLET PO SCH (09:00)
[2022-02-14] MEDS: RANOLAZINE 500 MG TABLET PO SCH (09:00)
[2022-02-14] MEDS: ISOSORBIDE MONONITRATE 30 MG TABLET PO SCH (09:00)
[2022-02-14] MEDS: carBAMazepine 200 MG TABLET PO SCH (09:00)
[2022-02-14] MEDS ORDERED: TUBERCULIN SKIN TEST 0.1 ML SYRINGE INTRADERM ONE (09:00)
[2022-02-14] MEDS: SEVELAMER CARBONATE 800 MG TABLET PO SCH ×2 (09:00→12:27)
[2022-02-14] MEDS: PANTOPRAZOLE 40 MG TABLET PO SCH (09:00)
[2022-02-14] MEDS: DOCUSATE SODIUM 100 MG CAPSULE PO SCH (09:01)
[2022-02-14] MEDS: ASPIRIN EC 81 MG TABLET PO SCH (09:01)
[2022-02-14 12:04] VITALS: BP 152/72
[2022-02-14] MEDS: cefTRIAXone 1,000 MG in SODIUM CHLORIDE 0.9% 100 ML IV SCH (12:25)
== END 2022-02-14 13:47 | disposition swing bed (61) | DRG 444 ==
LOC: N.EDINP 23:02 → N.ED 23:02 → N.EDINP 02-11 01:37 → N.TELES 02-11 02:12
PROVIDERS: ADMIT Family Medicine; ATTEND Family Medicine

== ENCOUNTER 2022-03-09 17:05 | Inpatient (IN) ==
[2022-03-09 22:47] LABS: Basophils # 0.1 10*3/uL (0.0-0.2); Eosinophils # 0.1 10*3/uL (0.0-0.87); Eosinophils % 2.1 % (0.00-10.9); Hematocrit 26.1 VOL% (35.7-47.0); Hemoglobin 8.2 GM/DL (12.0-16.0); Immature Granulocytes % 0.3 %; Immature Granulocytes Absolute 0.02 #; Lymphocytes % 15.9 % (21.3-54.2); Mean Corpuscular HGB Conc 31.4 GM/DL (32-36); Mean Corpuscular Volume 98.9 FL (87-102); Monocytes # 0.4 10*3/uL (0.11-0.8); Monocytes % 6.4 % (1.7-12.7); Neutrophils % 74.3 % (38.7-73.9); Platelet Count 201 T/CUMM (130-400); Red Blood Count 2.64 MC/CUMM (3.8-5.5); Red Cell Distribution Width 16.5 % (9.3-17.3); White Blood Count 6.1 T/CUMM (4-12)
[2022-03-09] MEDS ORDERED: ONDANSETRON 4 MG/2 ML VIAL IV STA (23:06)
[2022-03-09] MEDS ORDERED: ONDANSETRON 4 MG/2 ML VIAL ONE (23:07)
[2022-03-09 23:15] LABS: PT Patient Result 11.4 SECS (10.1-12.1); Partial Thromboplastin Time 25.8 SECS (23.7-32.9)
[2022-03-09 23:26] LABS: Bilirubin,Total 0.4 MG/DL (0.20-1.00); Calcium 9.1 MG/DL (8.5-10.1); Osmolality,Calculated 278.1 MOS/KG (273-304)
[2022-03-10] MEDS ORDERED: ONDANSETRON 4 MG/2 ML VIAL IV PRN (00:14)
[2022-03-10] MEDS ORDERED: ACETAMINOPHEN 325 MG TABLET PO PRN ×2 (00:14→11:22)
[2022-03-10 04:53] LABS: Basophils % 0.7 % (0.0-0.8); Eosinophils # 0.1 10*3/uL (0.0-0.87); Eosinophils % 1.4 % (0.00-10.9); Hematocrit 23.7 VOL% (35.7-47.0); Hemoglobin 7.8 GM/DL (12.0-16.0); Immature Granulocytes % 0.5 %; Immature Granulocytes Absolute 0.03 #; Lymphocytes # 0.8 10*3/uL (1.4-4.0); Lymphocytes % 13.5 % (21.3-54.2); Mean Corpuscular HGB Conc 32.9 GM/DL (32-36); Mean Corpuscular Volume 96.3 FL (87-102); Monocytes # 0.4 10*3/uL (0.11-0.8); Monocytes % 7.1 % (1.7-12.7); Neutrophils % 76.8 % (38.7-73.9); Platelet Count 188 T/CUMM (130-400); Red Blood Count 2.46 MC/CUMM (3.8-5.5); Red Cell Distribution Width 16.3 % (9.3-17.3); White Blood Count 5.7 T/CUMM (4-12)
[2022-03-10 05:17] LABS: Albumin 2.8 G/DL (3.4-5.0); Bilirubin,Total 0.5 MG/DL (0.20-1.00); Calcium 8.9 MG/DL (8.5-10.1); Osmolality,Calculated 283.8 MOS/KG (273-304); Potassium 5.7 MMOL/L (3.5-5.1)
[2022-03-10] MEDS: SEVELAMER CARBONATE 800 MG TABLET PO SCH ×5 (08:07→17:54)
[2022-03-10] MEDS: METOPROLOL TARTRATE 25 MG TABLET PO SCH ×2 (08:35→20:43)
[2022-03-10] MEDS: CLOPIDOGREL 75 MG TABLET PO SCH (08:35)
[2022-03-10] MEDS: carBAMazepine 200 MG TABLET PO SCH ×2 (08:35→20:43)
[2022-03-10] MEDS ORDERED: PANTOPRAZOLE 40 MG VIAL IV SCH (09:00)
[2022-03-10] MEDS ORDERED: LACTULOSE 20 GM/30 ML UDCUP PO PRN (11:22)
[2022-03-10] MEDS ORDERED: NITROGLYCERIN SL 0.4 MG TABLET SL PRN (11:22)
[2022-03-10] MEDS ORDERED: ONDANSETRON ODT 4 MG TABLET PO PRN (11:22)
[2022-03-10] MEDS ORDERED: ALBUTEROL 2.5 MG/3 ML NEB RESP TX PRN (11:29)
[2022-03-10] MEDS: cefTRIAXone 1,000 MG in SODIUM CHLORIDE 0.9% 100 ML IV SCH (12:22)
[2022-03-10] MEDS: RANOLAZINE 500 MG TABLET PO SCH (20:43)
[2022-03-10] MEDS: ATORVASTATIN 40 MG TABLET PO SCH (20:43)
[2022-03-10] MEDS: PANTOPRAZOLE 40 MG TABLET PO SCH (20:43)
[2022-03-11 05:21] LABS: Basophils # 0.1 10*3/uL (0.0-0.2); Basophils % 1.1 % (0.0-0.8); Eosinophils # 0.1 10*3/uL (0.0-0.87); Eosinophils % 2.5 % (0.00-10.9); Hematocrit 21.2 VOL% (35.7-47.0); Immature Granulocytes % 0.2 %; Immature Granulocytes Absolute 0.01 #; Lymphocytes # 0.9 10*3/uL (1.4-4.0); Lymphocytes % 18.8 % (21.3-54.2); Mean Corpuscular Volume 95.5 FL (87-102); Mean Platelet Volume 9.9 FL (9.6-12.0); Monocytes # 0.4 10*3/uL (0.11-0.8); Monocytes % 7.8 % (1.7-12.7); Neutrophils % 69.6 % (38.7-73.9); Platelet Count 183 T/CUMM (130-400); Red Blood Count 2.22 MC/CUMM (3.8-5.5); Red Cell Distribution Width 16.4 % (9.3-17.3); White Blood Count 4.7 T/CUMM (4-12)
[2022-03-11 05:43] LABS: Calcium 8.9 MG/DL (8.5-10.1); Potassium 4.3 MMOL/L (3.5-5.1)
[2022-03-11] MEDS: SEVELAMER CARBONATE 800 MG TABLET PO SCH ×6 (11:18→18:04)
[2022-03-11] MEDS: METOPROLOL TARTRATE 25 MG TABLET PO SCH ×2 (15:13→20:23)
[2022-03-11] MEDS: RANOLAZINE 500 MG TABLET PO SCH ×2 (15:14→20:23)
[2022-03-11] MEDS: carBAMazepine 200 MG TABLET PO SCH ×2 (15:14→20:24)
[2022-03-11] MEDS: PANTOPRAZOLE 40 MG TABLET PO SCH ×2 (15:14→20:25)
[2022-03-11] MEDS: ISOSORBIDE MONONITRATE 30 MG TABLET PO SCH (15:32)
[2022-03-11] MEDS: ASPIRIN EC 81 MG TABLET PO SCH (15:32)
[2022-03-11] MEDS: CLOPIDOGREL 75 MG TABLET PO SCH (15:32)
[2022-03-11] MEDS: amLODIPine 10 MG TABLET PO SCH (15:32)
[2022-03-11] MEDS: cefTRIAXone 1,000 MG in SODIUM CHLORIDE 0.9% 100 ML IV SCH (15:33)
[2022-03-11] MEDS: ATORVASTATIN 40 MG TABLET PO SCH (20:23)
[2022-03-12] MEDS: SEVELAMER CARBONATE 800 MG TABLET PO SCH ×4 (09:51→16:23)
[2022-03-12] MEDS: ISOSORBIDE MONONITRATE 30 MG TABLET PO SCH (09:51)
[2022-03-12] MEDS: amLODIPine 10 MG TABLET PO SCH (09:51)
[2022-03-12] MEDS: PANTOPRAZOLE 40 MG TABLET PO SCH ×2 (09:51→22:15)
[2022-03-12] MEDS: RANOLAZINE 500 MG TABLET PO SCH ×2 (09:51→23:18)
[2022-03-12] MEDS: METOPROLOL TARTRATE 25 MG TABLET PO SCH ×2 (09:51→22:15)
[2022-03-12] MEDS: carBAMazepine 200 MG TABLET PO SCH ×2 (09:52→22:15)
[2022-03-12] MEDS: ASPIRIN EC 81 MG TABLET PO SCH (09:52)
[2022-03-12] MEDS: CLOPIDOGREL 75 MG TABLET PO SCH (09:52)
[2022-03-12] MEDS: cefTRIAXone 1,000 MG in SODIUM CHLORIDE 0.9% 100 ML IV SCH (12:01)
[2022-03-12] MEDS: ATORVASTATIN 40 MG TABLET PO SCH (22:15)
[2022-03-13 05:12] LABS: Basophils % 0.8 % (0.0-0.8); Eosinophils # 0.2 10*3/uL (0.0-0.87); Eosinophils % 3.2 % (0.00-10.9); Immature Granulocytes % 0.4 %; Immature Granulocytes Absolute 0.02 #; Lymphocytes # 0.9 10*3/uL (1.4-4.0); Lymphocytes % 19.2 % (21.3-54.2); Mean Corpuscular HGB Conc 32.1 GM/DL (32-36); Mean Corpuscular Volume 96.9 FL (87-102); Mean Platelet Volume 10.4 FL (9.6-12.0); Monocytes # 0.4 10*3/uL (0.11-0.8); Monocytes % 9.3 % (1.7-12.7); Neutrophils % 67.1 % (38.7-73.9); Platelet Count 162 T/CUMM (130-400); Red Blood Count 1.96 MC/CUMM (3.8-5.5); Red Cell Distribution Width 16.7 % (9.3-17.3); White Blood Count 4.8 T/CUMM (4-12)
[2022-03-13 05:14] LABS: Hemoglobin 6.1 GM/DL (12.0-16.0)
[2022-03-13 05:34] LABS: Calcium 8.8 MG/DL (8.5-10.1); Osmolality,Calculated 286.3 MOS/KG (273-304); Potassium 4.3 MMOL/L (3.5-5.1)
[2022-03-13] MEDS: SEVELAMER CARBONATE 800 MG TABLET PO SCH ×3 (10:22→16:50)
[2022-03-13] MEDS: carBAMazepine 200 MG TABLET PO SCH ×2 (10:24→20:38)
[2022-03-13] MEDS: RANOLAZINE 500 MG TABLET PO SCH ×2 (10:24→20:38)
[2022-03-13] MEDS: CLOPIDOGREL 75 MG TABLET PO SCH (10:24)
[2022-03-13] MEDS: ASPIRIN EC 81 MG TABLET PO SCH (10:24)
[2022-03-13] MEDS: ISOSORBIDE MONONITRATE 30 MG TABLET PO SCH (12:35)
[2022-03-13] MEDS: METOPROLOL TARTRATE 25 MG TABLET PO SCH ×2 (12:35→20:38)
[2022-03-13] MEDS: amLODIPine 10 MG TABLET PO SCH (12:36)
[2022-03-13] MEDS ORDERED: SODIUM CHLORIDE 0.9% 1,000 ML IV PRN (12:49)
[2022-03-13] MEDS: cefTRIAXone 1,000 MG in SODIUM CHLORIDE 0.9% 100 ML IV SCH (16:50)
[2022-03-13] MEDS: PANTOPRAZOLE 40 MG TABLET PO SCH ×2 (16:50→20:38)
[2022-03-13] MEDS: ATORVASTATIN 40 MG TABLET PO SCH (20:38)
[2022-03-14 05:14] LABS: Basophils % 0.8 % (0.0-0.8); Eosinophils # 0.2 10*3/uL (0.0-0.87); Eosinophils % 3.4 % (0.00-10.9); Hematocrit 29.8 VOL% (35.7-47.0); Immature Granulocytes % 0.4 %; Immature Granulocytes Absolute 0.02 #; Lymphocytes # 1.1 10*3/uL (1.4-4.0); Mean Corpuscular HGB Conc 33.6 GM/DL (32-36); Mean Corpuscular Volume 91.7 FL (87-102); Mean Platelet Volume 10.2 FL (9.6-12.0); Monocytes # 0.5 10*3/uL (0.11-0.8); Monocytes % 9.7 % (1.7-12.7); Neutrophils % 63.7 % (38.7-73.9); Platelet Count 174 T/CUMM (130-400); Red Blood Count 3.25 MC/CUMM (3.8-5.5); Red Cell Distribution Width 18.1 % (9.3-17.3)
[2022-03-14 05:48] LABS: Albumin 2.7 G/DL (3.4-5.0); Bilirubin,Total 0.5 MG/DL (0.20-1.00); Calcium 8.7 MG/DL (8.5-10.1); Osmolality,Calculated 272.8 MOS/KG (273-304); Potassium 4.4 MMOL/L (3.5-5.1)
[2022-03-14] MEDS: SEVELAMER CARBONATE 800 MG TABLET PO SCH ×3 (09:27→17:35)
[2022-03-14] MEDS: amLODIPine 10 MG TABLET PO SCH (09:27)
[2022-03-14] MEDS: carBAMazepine 200 MG TABLET PO SCH ×2 (09:27→20:37)
[2022-03-14] MEDS: RANOLAZINE 500 MG TABLET PO SCH ×2 (09:27→20:37)
[2022-03-14] MEDS: ISOSORBIDE MONONITRATE 30 MG TABLET PO SCH (09:27)
[2022-03-14] MEDS: METOPROLOL TARTRATE 25 MG TABLET PO SCH ×2 (09:27→20:37)
[2022-03-14] MEDS: CLOPIDOGREL 75 MG TABLET PO SCH (09:27)
[2022-03-14] MEDS: PANTOPRAZOLE 40 MG TABLET PO SCH ×2 (09:27→20:37)
[2022-03-14] MEDS: ASPIRIN EC 81 MG TABLET PO SCH (09:27)
[2022-03-14] MEDS: cefTRIAXone 1,000 MG in SODIUM CHLORIDE 0.9% 100 ML IV SCH (13:22)
[2022-03-14] MEDS: ATORVASTATIN 40 MG TABLET PO SCH (20:37)
[2022-03-15] MEDS: CLOPIDOGREL 75 MG TABLET PO SCH (12:13)
[2022-03-15] MEDS: ISOSORBIDE MONONITRATE 30 MG TABLET PO SCH (12:13)
[2022-03-15] MEDS: PANTOPRAZOLE 40 MG TABLET PO SCH (12:13)
[2022-03-15] MEDS: METOPROLOL TARTRATE 25 MG TABLET PO SCH (12:13)
[2022-03-15] MEDS: carBAMazepine 200 MG TABLET PO SCH (12:13)
[2022-03-15] MEDS: RANOLAZINE 500 MG TABLET PO SCH (12:13)
[2022-03-15] MEDS: amLODIPine 10 MG TABLET PO SCH (12:13)
[2022-03-15] MEDS: SEVELAMER CARBONATE 800 MG TABLET PO SCH ×2 (12:13→13:18)
[2022-03-15] MEDS: cefTRIAXone 1,000 MG in SODIUM CHLORIDE 0.9% 100 ML IV SCH (12:14)
[2022-03-15] MEDS: ASPIRIN EC 81 MG TABLET PO SCH (12:15)
[2022-03-15 13:23] VITALS: BP 130/72
== END 2022-03-15 13:24 | DRG 884 ==
LOC: N.EDINP 17:05 → N.ED 17:05 → N.2W 03-10 08:35 → N.TELEN 03-10 13:10
PROVIDERS: ADMIT Family Medicine; ATTEND Family Medicine

== ENCOUNTER 2022-05-02 05:44 | Inpatient (IN) ==
[2022-05-02] MEDS ORDERED: INDOCYANINE GREEN 25 MG VIAL IV ONE ×2 (05:49→06:10)
[2022-05-02] MEDS ORDERED: ceFAZolin 2,000 MG/50 ML DUPLEX IV ONE (06:00)
[2022-05-02 06:19] LABS: Basophils % 0.6 % (0.0-0.8); Eosinophils # 0.1 10*3/uL (0.0-0.87); Eosinophils % 2.4 % (0.00-10.9); Hematocrit 31.4 VOL% (35.7-47.0); Hemoglobin 10.1 GM/DL (12.0-16.0); Immature Granulocytes % 0.4 %; Immature Granulocytes Absolute 0.02 #; Lymphocytes # 1.1 10*3/uL (1.4-4.0); Mean Corpuscular HGB Conc 32.2 GM/DL (32-36); Mean Corpuscular Volume 96.9 FL (87-102); Mean Platelet Volume 10.1 FL (9.6-12.0); Monocytes # 0.4 10*3/uL (0.11-0.8); Monocytes % 6.6 % (1.7-12.7); Platelet Count 247 T/CUMM (130-400); Red Blood Count 3.24 MC/CUMM (3.8-5.5); Red Cell Distribution Width 16.3 % (9.3-17.3); White Blood Count 5.4 T/CUMM (4-12)
[2022-05-02] MEDS ORDERED: LIDOCAINE 1% 5 ML VIAL ONE (06:24)
[2022-05-02] MEDS ORDERED: BUPIVACAINE MPF 0.25% 10 ML VIAL ONE (06:24)
[2022-05-02] MEDS ORDERED: TISSUE ADHESIVE 1 EACH APPLICATOR TOP ONE (06:24)
[2022-05-02] MEDS ORDERED: SUCCINYLCHOLINE 200 MG/10 ML VIAL ONE (06:26)
[2022-05-02] MEDS ORDERED: ONDANSETRON 4 MG/2 ML VIAL ONE (06:26)
[2022-05-02] MEDS ORDERED: ACETAMINOPHEN INJ 0 MG/0 ML VIAL IV ONE (06:26)
[2022-05-02] MEDS ORDERED: fentaNYL 100 MCG/2 ML VIAL ONE (06:26)
[2022-05-02] MEDS ORDERED: LIDOCAINE 2% 5 ML VIAL ONE (06:26)
[2022-05-02] MEDS ORDERED: ROCURONIUM 50 MG/5 ML VIAL IV ONE (06:26)
[2022-05-02] MEDS ORDERED: propofoL 200 MG/20 ML VIAL IV ONE (06:26)
[2022-05-02] MEDS ORDERED: MIDAZOLAM 2 MG/2 ML VIAL ONE (06:27)
[2022-05-02 06:30] LABS: INR 0.9; Partial Thromboplastin Time 27.8 SECS (23.7-32.9)
[2022-05-02] MEDS: SODIUM CHLORIDE 0.9% 250 ML IV SCH (06:30)
[2022-05-02] MEDS ORDERED: ePHEDrine 50 MG/ML VIAL ONE (06:32)
[2022-05-02 06:37] LABS: Calcium 10.3 MG/DL (8.5-10.1); Osmolality,Calculated 284.4 MOS/KG (273-304); Potassium 4.3 MMOL/L (3.5-5.1)
[2022-05-02] MEDS ORDERED: ALBUTEROL 2.5 MG/3 ML NEB RESP TX PRN (08:05)
[2022-05-02] MEDS ORDERED: ACETAMINOPHEN 325 MG TABLET PO PRN ×2 (08:05→11:30)
[2022-05-02] MEDS ORDERED: NITROGLYCERIN SL 0.4 MG TABLET SL PRN (08:05)
[2022-05-02] MEDS ORDERED: ONDANSETRON 4 MG TABLET PO PRN (08:05)
[2022-05-02] MEDS ORDERED: CLOPIDOGREL 75 MG TABLET PO SCH (09:00)
[2022-05-02] MEDS ORDERED: ONDANSETRON 4 MG/2 ML VIAL IV PRN (11:30)
[2022-05-02] MEDS ORDERED: ASPIRIN EC 81 MG TABLET PO SCH (12:00)
[2022-05-02] MEDS: METOPROLOL TARTRATE 25 MG TABLET PO SCH ×2 (13:56→20:40)
[2022-05-02] MEDS: PANTOPRAZOLE 40 MG TABLET PO SCH ×3 (13:57→20:40)
[2022-05-02] MEDS: ASPIRIN EC 81 MG TABLET PO SCH (13:57)
[2022-05-02] MEDS: CLOPIDOGREL 75 MG TABLET PO SCH (13:57)
[2022-05-02] MEDS: RANOLAZINE 500 MG TABLET PO SCH ×2 (13:58→20:40)
[2022-05-02] MEDS: ISOSORBIDE MONONITRATE 30 MG TABLET PO SCH (13:58)
[2022-05-02] MEDS: ATORVASTATIN 40 MG TABLET PO SCH (13:58)
[2022-05-02] MEDS: amLODIPine 10 MG TABLET PO SCH (13:58)
[2022-05-02] MEDS: carBAMazepine 200 MG TABLET PO SCH ×2 (13:59→20:40)
[2022-05-02] MEDS: SEVELAMER CARBONATE 800 MG TABLET PO SCH ×2 (13:59→16:45)
[2022-05-03 05:49] LABS: Basophils # 0.1 10*3/uL (0.0-0.2); Basophils % 1.1 % (0.0-0.8); Eosinophils # 0.2 10*3/uL (0.0-0.87); Eosinophils % 3.3 % (0.00-10.9); Hematocrit 29.1 VOL% (35.7-47.0); Hemoglobin 9.3 GM/DL (12.0-16.0); Immature Granulocytes % 0.4 %; Immature Granulocytes Absolute 0.02 #; Lymphocytes # 1.2 10*3/uL (1.4-4.0); Lymphocytes % 25.8 % (21.3-54.2); Mean Corpuscular Volume 96.7 FL (87-102); Mean Platelet Volume 10.1 FL (9.6-12.0); Monocytes # 0.4 10*3/uL (0.11-0.8); Monocytes % 8.1 % (1.7-12.7); Neutrophils % 61.3 % (38.7-73.9); Platelet Count 235 T/CUMM (130-400); Red Blood Count 3.01 MC/CUMM (3.8-5.5); Red Cell Distribution Width 16.5 % (9.3-17.3); White Blood Count 4.5 T/CUMM (4-12)
[2022-05-03] MEDS: ENOXAPARIN 40 MG/0.4 ML SYRINGE SUBCUT SCH (06:02)
[2022-05-03 06:11] LABS: Calcium 9.4 MG/DL (8.5-10.1); Osmolality,Calculated 288.4 MOS/KG (273-304); Potassium 5.1 MMOL/L (3.5-5.1)
[2022-05-03] MEDS ORDERED: hydrALAZINE 20 MG/1 ML VIAL IV PRN (07:59)
[2022-05-03] MEDS ORDERED: ceFAZolin 2,000 MG/50 ML DUPLEX IV ONE (08:01)
[2022-05-03] MEDS ORDERED: INDOCYANINE GREEN 25 MG VIAL IV ONE ×2 (08:01)
[2022-05-03] MEDS ORDERED: fentaNYL 100 MCG/2 ML VIAL ONE (08:04)
[2022-05-03] MEDS ORDERED: propofoL 200 MG/20 ML VIAL IV ONE (08:12)
[2022-05-03] MEDS ORDERED: ETOMIDATE 40 MG/20 ML VIAL IV ONE (08:12)
[2022-05-03] MEDS ORDERED: ROCURONIUM 50 MG/5 ML VIAL IV ONE (08:12)
[2022-05-03] MEDS ORDERED: ONDANSETRON 4 MG/2 ML VIAL ONE (08:12)
[2022-05-03] MEDS: ISOSORBIDE MONONITRATE 30 MG TABLET PO SCH (08:12)
[2022-05-03] MEDS: METOPROLOL TARTRATE 25 MG TABLET PO SCH ×2 (08:12→21:04)
[2022-05-03] MEDS: amLODIPine 10 MG TABLET PO SCH (08:12)
[2022-05-03] MEDS: carBAMazepine 200 MG TABLET PO SCH ×2 (08:14→21:04)
[2022-05-03] MEDS ORDERED: BUPIVACAINE MPF 0.25% 10 ML VIAL ONE (08:15)
[2022-05-03] MEDS ORDERED: LIDOCAINE 1% 5 ML VIAL ONE ×2 (08:16)
[2022-05-03] MEDS: ASPIRIN EC 81 MG TABLET PO SCH (08:18)
[2022-05-03] MEDS: SEVELAMER CARBONATE 800 MG TABLET PO SCH ×3 (08:18→16:40)
[2022-05-03] MEDS: ATORVASTATIN 40 MG TABLET PO SCH (08:18)
[2022-05-03] MEDS: PANTOPRAZOLE 40 MG TABLET PO SCH ×3 (08:19→21:04)
[2022-05-03] MEDS: CLOPIDOGREL 75 MG TABLET PO SCH (08:19)
[2022-05-03] MEDS: RANOLAZINE 500 MG TABLET PO SCH ×2 (08:19→21:04)
[2022-05-03] MEDS ORDERED: ePHEDrine 50 MG/ML VIAL ONE (09:00)
[2022-05-03] MEDS ORDERED: PHENYLEPHRINE 1 MG/10 ML SYRINGE IV ONE (09:22)
[2022-05-03] MEDS ORDERED: EPINEPHrine 1 MG/ML VIAL ONE (09:22)
[2022-05-03] MEDS ORDERED: SEVOFLURANE 1 UNIT/15 MINUTE INH ONE (09:25)
[2022-05-03] MEDS ORDERED: GLYCOPYRROLATE 0.4 MG/2 ML VIAL ONE (09:32)
[2022-05-03] MEDS ORDERED: NEOSTIGMINE 10 MG/10 ML VIAL ONE (09:32)
[2022-05-03] MEDS ORDERED: TISSUE ADHESIVE 1 EACH APPLICATOR TOP ONE (09:32)
[2022-05-03] MEDS ORDERED: ONDANSETRON 4 MG/2 ML VIAL IV PRN (09:55)
[2022-05-03] MEDS ORDERED: HYDROmorphone 1 MG/1 ML SYRINGE IV PRN (09:55)
[2022-05-03] MEDS ORDERED: PROMETHAZINE INJ 25 MG in SODIUM CHLORIDE 0.9% 50 ML IV PRN (09:55)
[2022-05-03] MEDS ORDERED: diphenhydrAMINE 50 MG/1 ML VIAL IV PRN (09:55)
[2022-05-03] MEDS: MEPERIDINE 25 MG/1 ML VIAL IV PRN ×2 (10:00→10:10)
[2022-05-03] MEDS ORDERED: MEPERIDINE 25 MG/1 ML VIAL ONE (10:03)
[2022-05-03] MEDS ORDERED: PROMETHAZINE 25 MG/1 ML VIAL ONE (10:03)
[2022-05-03] MEDS: SODIUM CHLORIDE 0.9% 250 ML IV SCH ×2 (10:10→10:11)
[2022-05-04 04:39] LABS: Basophils # 0.1 10*3/uL (0.0-0.2); Basophils % 0.9 % (0.0-0.8); Eosinophils # 0.1 10*3/uL (0.0-0.87); Eosinophils % 1.3 % (0.00-10.9); Hematocrit 28.4 VOL% (35.7-47.0); Hemoglobin 8.9 GM/DL (12.0-16.0); Immature Granulocytes % 0.4 %; Immature Granulocytes Absolute 0.02 #; Lymphocytes # 0.8 10*3/uL (1.4-4.0); Lymphocytes % 15.4 % (21.3-54.2); Mean Corpuscular HGB Conc 31.3 GM/DL (32-36); Mean Corpuscular Volume 97.9 FL (87-102); Monocytes # 0.4 10*3/uL (0.11-0.8); Monocytes % 7.5 % (1.7-12.7); Neutrophils % 74.5 % (38.7-73.9); Platelet Count 221 T/CUMM (130-400); Red Cell Distribution Width 16.3 % (9.3-17.3); White Blood Count 5.5 T/CUMM (4-12)
[2022-05-04 04:57] LABS: Calcium 8.9 MG/DL (8.5-10.1); Osmolality,Calculated 276.7 MOS/KG (273-304); Potassium 5.3 MMOL/L (3.5-5.1)
[2022-05-04] MEDS: ENOXAPARIN 40 MG/0.4 ML SYRINGE SUBCUT SCH (05:49)
[2022-05-04] MEDS: ASPIRIN EC 81 MG TABLET PO SCH (09:17)
[2022-05-04] MEDS: SEVELAMER CARBONATE 800 MG TABLET PO SCH ×2 (09:17→12:48)
[2022-05-04] MEDS: carBAMazepine 200 MG TABLET PO SCH (09:17)
[2022-05-04] MEDS: RANOLAZINE 500 MG TABLET PO SCH (09:17)
[2022-05-04] MEDS: ISOSORBIDE MONONITRATE 30 MG TABLET PO SCH (09:17)
[2022-05-04] MEDS: PANTOPRAZOLE 40 MG TABLET PO SCH ×2 (09:18)
[2022-05-04] MEDS: METOPROLOL TARTRATE 25 MG TABLET PO SCH (09:18)
[2022-05-04] MEDS: CLOPIDOGREL 75 MG TABLET PO SCH (09:18)
[2022-05-04] MEDS: ATORVASTATIN 40 MG TABLET PO SCH (09:18)
[2022-05-04] MEDS: amLODIPine 10 MG TABLET PO SCH (09:19)
[2022-05-04 11:26] VITALS: BP 124/67
== END 2022-05-04 14:10 | disposition home or self-care (01) | DRG 417 ==
LOC: N.OR 05:44 → N.SDSINP 05:44 → N.3E 08:19
PROVIDERS: ADMIT Surgery; ATTEND Surgery

== ENCOUNTER 2022-07-11 09:07 | Inpatient (IN) ==
[2022-07-11 10:19] LABS: Basophils # 0.1 10*3/uL (0.0-0.2); Basophils % 1.3 % (0.0-0.8); Eosinophils # 0.1 10*3/uL (0.0-0.87); Eosinophils % 2.5 % (0.00-10.9); Hematocrit 34.1 VOL% (35.7-47.0); Immature Granulocytes % 0.2 %; Immature Granulocytes Absolute 0.01 #; Lymphocytes # 1.2 10*3/uL (1.4-4.0); Lymphocytes % 25.7 % (21.3-54.2); Mean Corpuscular HGB Conc 32.3 GM/DL (32-36); Mean Corpuscular Volume 97.2 FL (87-102); Mean Platelet Volume 9.4 FL (9.6-12.0); Monocytes # 0.3 10*3/uL (0.11-0.8); Monocytes % 6.5 % (1.7-12.7); Neutrophils % 63.8 % (38.7-73.9); Platelet Count 263 T/CUMM (130-400); Red Blood Count 3.51 MC/CUMM (3.8-5.5); Red Cell Distribution Width 17.5 % (9.3-17.3); White Blood Count 4.74 T/CUMM (4-12)
[2022-07-11 10:31] LABS: Mucus,Urine Occasional /LPF (Occasional); RBC,Urine <1 /HPF (0-4); Squamous Epithelial Cell,Urine Occasional /HPF (0-10)
[2022-07-11 10:34] LABS: Bilirubin,Urine Negative (Negative); Blood, Urine Negative (Negative); Glucose,Urine (UA) Negative (Negative); Ketones,Urine Negative (Negative); Nitrite,Urine Negative (Negative); Protein,Urine >=300 mg/dL (Negative); Urine Appearance Clear (Clear); Urine Color Yellow (Yellow); Urine Urobilinogen 0.2 eU/dL (<2.0); Urine pH 7.5 (4.5-8.0)
[2022-07-11 10:50] LABS: Alanine Aminotransferase 27 U/L (13-56); Alkaline Phosphatase 91 U/L (45-117); Aspartate Amino Transferase 20 U/L (0-37); Bilirubin,Total < 0.39 MG/DL (0.20-1.00); Blood Urea Nitrogen 39 MG/DL (7-18); Calcium 9.6 MG/DL (8.5-10.1); Carbon Dioxide 28 MMOL/L (21-32); Chloride 101 MMOL/L (98-107); Glucose 92 MG/DL (74-106); Osmolality,Calculated 283.7 MOS/KG (273-304); Potassium 3.8 MMOL/L (3.5-5.1); Sodium 138 MMOL/L (136-145); Total Protein 6.9 G/DL (6.4-8.2)
[2022-07-11] MEDS ORDERED: ACETAMINOPHEN 325 MG TABLET PO PRN (11:22)
[2022-07-11] MEDS ORDERED: ONDANSETRON 4 MG/2 ML VIAL IV PRN (11:22)
[2022-07-11] MEDS ORDERED: hydrALAZINE 20 MG/1 ML VIAL IV PRN (16:28)
[2022-07-11] MEDS ORDERED: NITROGLYCERIN SL 0.4 MG TABLET SL PRN (16:29)
[2022-07-11] MEDS ORDERED: ALBUTEROL 2.5 MG/3 ML NEB RESP TX PRN (16:34)
[2022-07-11] MEDS: DOCUSATE SODIUM 100 MG CAPSULE PO SCH (20:27)
[2022-07-11] MEDS: hydrALAZINE 25 MG TABLET PO SCH (20:27)
[2022-07-11] MEDS ORDERED: RANOLAZINE 1000 MG PO SCH (21:00)
[2022-07-11] MEDS ORDERED: METOPROLOL TARTRATE 25 MG TABLET PO SCH (21:00)
[2022-07-11] MEDS ORDERED: SEVELAMER HCL 800 MG PO SCH (21:00)
[2022-07-12 05:33] LABS: Basophils # 0.1 10*3/uL (0.0-0.2); Basophils % 1.7 % (0.0-0.8); Eosinophils # 0.2 10*3/uL (0.0-0.87); Eosinophils % 4.2 % (0.00-10.9); Hematocrit 32.4 VOL% (35.7-47.0); Hemoglobin 10.6 GM/DL (12.0-16.0); Immature Granulocytes % 0.6 %; Immature Granulocytes Absolute 0.02 #; Lymphocytes # 1.2 10*3/uL (1.4-4.0); Lymphocytes % 33.6 % (21.3-54.2); Mean Corpuscular HGB Conc 32.7 GM/DL (32-36); Mean Corpuscular Volume 95.6 FL (87-102); Mean Platelet Volume 9.4 FL (9.6-12.0); Monocytes # 0.3 10*3/uL (0.11-0.8); Monocytes % 9.2 % (1.7-12.7); Neutrophils % 50.7 % (38.7-73.9); Platelet Count 266 T/CUMM (130-400); Red Blood Count 3.39 MC/CUMM (3.8-5.5); Red Cell Distribution Width 17.3 % (9.3-17.3)
[2022-07-12 05:56] LABS: Alanine Aminotransferase 22 U/L (13-56); Albumin 2.8 G/DL (3.4-5.0); Alkaline Phosphatase 81 U/L (45-117); Aspartate Amino Transferase 15 U/L (0-37); Bilirubin,Total < 0.39 MG/DL (0.20-1.00); Blood Urea Nitrogen 45 MG/DL (7-18); Calcium 8.9 MG/DL (8.5-10.1); Carbon Dioxide 24 MMOL/L (21-32); Chloride 100 MMOL/L (98-107); Glucose 82 MG/DL (74-106); Osmolality,Calculated 280.1 MOS/KG (273-304); Potassium 4.5 MMOL/L (3.5-5.1); Sodium 135 MMOL/L (136-145); Total Protein 6.5 G/DL (6.4-8.2)
[2022-07-12] MEDS ORDERED: amLODIPine 10 MG TABLET PO SCH (09:00)
[2022-07-12] MEDS ORDERED: ISOSORBIDE MONONITRATE 30 MG TABLET PO SCH (09:00)
[2022-07-12] MEDS ORDERED: ATORVASTATIN 40 MG TABLET PO SCH (09:00)
[2022-07-12] MEDS ORDERED: LIDOCAINE 2% 5 ML VIAL ONE (09:34)
[2022-07-12] MEDS ORDERED: fentaNYL 100 MCG/2 ML VIAL ONE (09:34)
[2022-07-12] MEDS ORDERED: propofoL 200 MG/20 ML VIAL IV ONE (09:34)
[2022-07-12] MEDS ORDERED: SODIUM CHLORIDE 0.9% 250 ML IV SCH (10:00)
[2022-07-12] MEDS ORDERED: PHENYLEPHRINE 1 MG/10 ML SYRINGE IV ONE (11:01)
[2022-07-12] MEDS ORDERED: ONDANSETRON 4 MG/2 ML VIAL ONE (11:01)
[2022-07-12] MEDS ORDERED: SEVOFLURANE 1 UNIT/15 MINUTE INH ONE ×2 (11:01→11:03)
[2022-07-12] MEDS ORDERED: BUPIVACAINE LIPOSOMAL 20 ML/266 MG VIAL ONE (11:05)
[2022-07-12] MEDS ORDERED: LIDOCAINE 2% TOP JELLY 5 ML TUBE TOP ONE (11:08)
[2022-07-12] MEDS ORDERED: MORPHINE 2 MG/1 ML SYRINGE IV PRN (11:25)
[2022-07-12] MEDS: hydrALAZINE 25 MG TABLET PO SCH ×3 (11:56→20:18)
[2022-07-12] MEDS: PANTOPRAZOLE 40 MG TABLET PO SCH (11:57)
[2022-07-12] MEDS: DOCUSATE SODIUM 100 MG CAPSULE PO SCH ×2 (11:57→20:18)
[2022-07-12] MEDS: MORPHINE 2 MG/1 ML SYRINGE IV PRN ×3 (14:47→23:11)
[2022-07-13] MEDS: DOCUSATE SODIUM 100 MG CAPSULE PO SCH (09:08)
[2022-07-13] MEDS: PANTOPRAZOLE 40 MG TABLET PO SCH (09:09)
[2022-07-13] MEDS: hydrALAZINE 25 MG TABLET PO SCH (09:09)
[2022-07-13 12:05] VITALS: BP 119/63
== END 2022-07-13 13:29 | disposition home health service (06) | DRG 393 ==
LOC: N.ED 09:07 → N.3E 11:21
PROVIDERS: ADMIT Family Medicine; ATTEND Family Medicine